=== PATIENT | female | born 1950 | race Caucasian/White ===

== ENCOUNTER 2017-01-28 17:39 | Emergency (ER) | payer MEDICAID ==
[~2017-01-28] VITALS: Ht 152.4 cm; Wt 73.0 kg
[~2017-01-28 17:39] MED LIST: CEPH500C PO; ERYT1OIN6 RIGHT EYE; HTN MED; IBUP400T22 PO; [UNRECOGNIZED DRUG - REMARK]
[2017-01-28 17:41] VITALS: Ht 152.4 cm; Wt 73.0 kg
[2017-01-28] MEDS ORDERED: AMO500 PO (18:13)
[2017-01-28] MEDS ORDERED: NPH10OT RIGHT EAR (18:13)
[2017-01-28] MEDS ORDERED: NAPR-260 PO (18:13)
--- NOTE | 2017-01-28 18:28 | ERD ---
ER Documentation Chief Complaint Date/Time DATE: 01/28/17 TIME: 18:25 Chief Complaint r ear pain x 4 days HPI This is a 66-year-old female presents to the ER with right ear pain for the last 4 days. Patient states that outside of her ear hurts including her ear lobe. Patient denies any fevers or chills. She denies any hearing loss or tinnitus. Patient denies any ear discharge. She is diabetic and has hypertension. Patient denies any sore throat, runny nose or cough. ROS 12 point review of systems was done, all negative except per HPI. Medications Home Meds Active Scripts Naproxen* (Naprosyn*) 500 Mg Tablet, 500 MG PO BID Y for PAIN AND/OR INFLAMMATION, #30 TAB Prov:MALIA LEVIN 01/28/17 Neomycin/Polymyxin/Hydrocort* (Cortisporin* Otic) 10 Ml Susp, 4 DROP RIGHT EAR QID for 7 Days, EA Prov:MALIA LEVIN 01/28/17 Amoxicillin* (Amoxicillin*) 500 Mg Cap, 500 MG PO BID for 10 Days, CAP Prov:MALIA LEVIN 01/28/17 Cephalexin* (Cephalexin*) 500 Mg Capsule, 500 MG PO Q6 for 5 Days, CAP Prov:MITCH IGLESIAS MD 12/24/15 Ibuprofen* (Motrin*) 400 Mg Tab, 400 MG PO Q6, #18 TAB Prov:MITCH IGLESIAS MD 12/24/15 Erythromycin (Erythromycin Opth) 3.5 Gm Oint..gm., 1 APPLIC RIGHT EYE BID, #1 TUB Prov:CATHY MO 11/07/15 Reported Medications [Unkn Dm Meds] No Conflict Check 02/04/10 [Unkn Htn Med] No Conflict Check 02/04/10 Allergies Allergies: Coded Allergies: No Known Drug Allergy (Verified Allergy, Mild, 02/04/10) PMhx/Soc History of Surgery: No Anesthesia Reaction: No Hx Neurological Disorder: No Hx Respiratory Disorders: No Hx Cardiac Disorders: Yes (HTN) Hx Psychiatric Problems: No Hx Miscellaneous Medical Probl: Yes (DM) Hx Alcohol Use: No Hx Substance Use: No Hx Tobacco Use: No Physical Exam Vitals Vital Signs Date Time Temp Pulse Resp B/P Pulse Ox O2 Delivery O2 Flow Rate FiO2 01/28/17 17:41 97.4 86 18 189/93 97 Physical Exam GENERAL: The patient is well developed and appropriate for usual state of health , in no apparent distress. HEENT: Atraumatic. Conjunctivae are pink. Pupils equal, round, and reactive to light. Extraocular muscles are grossly intact. Bilateral tympanic membranes are clear with no evidence of erythema, effusion or dulling of the light reflex. There is slight erythema of the right ear canal, there is pain with pinna manipulation and tragus tenderness. No discharge is seen. No mastoid tenderness. The oropharynx is clear with no erythema or exudates. CHEST: Clear to auscultation bilaterally. There are no rales, wheezes or rhonchi. HEART: Regular rate and rhythm. No murmurs, clicks, rubs or gallops. NEURO: Alert and oriented. SKIN:The skin is warm and dry. Procedures/MDM Differential diagnosis includes but is not limited to otitis externa, otitis media, cellulitis, trauma, mastoiditis. This is a 56-year-old female presents to the ER with right ear pain, patient doesn't have external otitis. Suspicion for mastoiditis is low, there is no mastoid tenderness to examination. She'll be sent home with amoxicillin and Corticosporin. She'll be sent home with naproxen for pain. Patient is to follow-up with her primary care doctor within 1 -2 days or return to ER sooner symptoms worsen. My medical decision making was shared with the patient she understands and agrees with plan. Departure Diagnosis: Primary Impression: Otitis externa Condition: Stable Patient Instructions: External Ear Infection (Adult) Additional Instructions: Llame al doctor [facility] y les fred MELISSA PARA DENTRO DE 1-2 GILLESPIE.Dgale a la secretaria que nosotros le instruimos hacer esta melissa.Avise o llame si blackwood condicin se empeora antes de la melissa. Regresa aqui si peor o no mejor. MALIA LEVIN Jan 28, 2017 18:28
== END 2017-01-28 18:16 | disposition home or self-care (01) ==
LOC: E/R 17:39
DX: H60.91 Unspecified otitis externa, right ear (principal); I10 Essential (primary) hypertension; E11.9 Type 2 diabetes mellitus without complications
CPT/HCPCS: 99283

== ENCOUNTER 2017-01-29 20:36 | Inpatient (IN) | payer MEDICAID ==
[~2017-01-29] VITALS: Ht 147.3 cm; Wt 33.6 kg
[~2017-01-29 20:36] MED LIST changes: +AMO500 PO; +NAPR-260 PO; +NPH10OT RIGHT EAR
[2017-01-29 20:44] VITALS: Ht 147.3 cm; Wt 33.6 kg
[2017-01-29 21:14] LABS: ADD SCAN DIFF NO
[2017-01-29 21:20] LABS: BASOPHIL # 0.1 10^3/ul (0.0-0.1); BASOPHILS % 0.7 % (0.0-2.0); EOSINOPHILS # 0.3 10^3/ul (0.0-0.5); EOSINOPHILS % 2.4 % (0.0-7.0); HEMATOCRIT 40.1 % (37.0-47.0); LYMPHOCYTES # 3.3 10^3/ul (0.8-2.9); LYMPHOCYTES % 28.3 % (15.0-51.0); MEAN CORPUSCULAR HEMOGLOBIN 30.3 pg (29.0-33.0); MEAN CORPUSCULAR HGB CONC 32.4 g/dl (32.0-37.0); MEAN CORPUSCULAR VOLUME 93.5 fl (82.0-101.0); MEAN PLATELET VOLUME 9.7 fl (7.4-10.4); MONOCYTE # 0.8 10^3/ul (0.3-0.9); MONOCYTES % 6.9 % (0.0-11.0); NEUTROPHIL # 7.1 10^3/ul (1.6-7.5); NEUTROPHILS % 61.1 % (39.0-77.0); PLATELET COUNT 297 10^3/UL (140-415); RED BLOOD COUNT 4.29 10^6/ul (4.20-5.40); RED CELL DISTRIBUTION WIDTH 13.1 % (11.5-14.5); WHITE BLOOD COUNT 11.7 10^3/ul (4.8-10.8)
[2017-01-29 21:40] LABS: INR 0.81; PROTIME 11.2 Sec (12.2-14.2); PT RATIO 0.9
[2017-01-29 21:41] LABS: PARTIAL THROMBOPLASTIN TIME 28.1 Sec (25.0-35.0)
[2017-01-29 21:44] LABS: ANION GAP 14 (8-16); BLOOD UREA NITROGEN 16 mg/dl (7-20); CALCIUM 9.3 mg/dl (8.4-10.2); CARBON DIOXIDE 30 mmol/L (21-31); CHLORIDE 105 mmol/L (97-110); CREATININE 0.96 mg/dl (0.44-1.00); GLUCOSE 170 mg/dl (70-220); POTASSIUM 3.5 mmol/L (3.5-5.1); SODIUM 145 mmol/L (135-144)
[2017-01-29 22:00] LABS: TROPONIN-I < 0.012 ng/ml (0.00-0.12)
--- NOTE | 2017-01-29 22:00 | ERA ---
ER Documentation Chief Complaint Date/Time DATE: 01/29/17 TIME: 21:55 Chief Complaint LEFT FACIAL DROOP WITH NUMBNESS TO LEFT FACE SINCE 3 PM. HTN HPI 66-year-old Argentine speaking female. Rn Picu use. The patient presents with left facial droop and numbness. The patient states the onset is around 3 PM or greater than 6 hours prior to arrival. The patient states that she was here yesterday and diagnosed with an ear infection. She denies any fevers or chills, no headache or neck pain. She denies any slurred speech or difficulty moving her upper extremities, no ataxia. She denies any change in taste of her right lateral tongue. ROS All systems reviewed and are negative except as per history of present illness. Medications Home Meds Active Scripts Naproxen* (Naprosyn*) 500 Mg Tablet, 500 MG PO BID Y for PAIN AND/OR INFLAMMATION, #30 TAB Prov:MALIA LEVIN 01/28/17 Neomycin/Polymyxin/Hydrocort* (Cortisporin* Otic) 10 Ml Susp, 4 DROP RIGHT EAR QID for 7 Days, EA Prov:MALIA LEVIN 01/28/17 Amoxicillin* (Amoxicillin*) 500 Mg Cap, 500 MG PO BID for 10 Days, CAP Prov:MALIA LEVIN 01/28/17 Cephalexin* (Cephalexin*) 500 Mg Capsule, 500 MG PO Q6 for 5 Days, CAP Prov:MITCH IGLESIAS MD 12/24/15 Ibuprofen* (Motrin*) 400 Mg Tab, 400 MG PO Q6, #18 TAB Prov:MITCH IGLESIAS MD 12/24/15 Erythromycin (Erythromycin Opth) 3.5 Gm Oint..gm., 1 APPLIC RIGHT EYE BID, #1 TUB Prov:CATHY MO 11/07/15 Reported Medications [Unkn Dm Meds] No Conflict Check 02/04/10 [Unkn Htn Med] No Conflict Check 02/04/10 Allergies Allergies: Coded Allergies: No Known Drug Allergy (Verified Allergy, Mild, 02/04/10) PMhx/Soc History of Surgery: No Anesthesia Reaction: No Hx Neurological Disorder: No Hx Respiratory Disorders: No Hx Cardiac Disorders: Yes (HTN) Hx Psychiatric Problems: No Hx Miscellaneous Medical Probl: Yes (DM) Hx Alcohol Use: No Hx Substance Use: No Hx Tobacco Use: No Smoking Status: Never smoker FmHx Family History: No diabetes Physical Exam Vitals Vital Signs Date Time Temp Pulse Resp B/P Pulse Ox O2 Delivery O2 Flow Rate FiO2 01/29/17 21:00 82 20 199/102 98 Room Air 01/29/17 20:44 96.2 84 18 211/100 96 Physical Exam General: Well developed, well nourished, no acute distress Head: Normocephalic, atraumatic. Eyes: Pupils equally reactive, EOM intact ENT: Moist mucous membranes Neck: Supple, no lymphadenopathy Respiratory: Lungs clear bilaterally, no distress Cardiovascular: RRR, no murmurs, rubs, or gallops Abdominal: Soft, non-tender, non-distended, no peritoneal signs : Deferred MSK: No edema, no unilateral swelling, 5/5 strength Neurologic: Alert and oriented, moving all extremities, normal speech, no focal weakness, no cerebellar signs, the patient has evidence of a right-sided facial droop that spares the forehead. She has no pronator drift she has no ataxia. Skin: No rash Psych: Normal mood Result Diagram: 01/29/17 2100 01/29/17 2100 Results 24 hrs Laboratory Tests Test 01/29/17 21:00 01/29/17 21:06 White Blood Count 11.710^3/ul Red Blood Count 4.2910^6/ul Hemoglobin 13.0g/dl Hematocrit 40.1% Mean Corpuscular Volume 93.5fl Mean Corpuscular Hemoglobin 30.3pg Mean Corpuscular Hemoglobin Concent 32.4g/dl Red Cell Distribution Width 13.1% Platelet Count 52618^3/UL Mean Platelet Volume 9.7fl Neutrophils % 61.1% Lymphocytes % 28.3% Monocytes % 6.9% Eosinophils % 2.4% Basophils % 0.7% Nucleated Red Blood Cells % 0.0/100WBC Neutrophils # 7.110^3/ul Lymphocytes # 3.310^3/ul Monocytes # 0.810^3/ul Eosinophils # 0.310^3/ul Basophils # 0.110^3/ul Nucleated Red Blood Cells # 0.010^3/ul Prothrombin Time 11.2Sec Prothrombin Time Ratio 0.9 INR International Normalized Ratio 0.81 Activated Partial Thromboplast Time 28.1Sec Sodium Level 145mmol/L Potassium Level 3.5mmol/L Chloride Level 105mmol/L Carbon Dioxide Level 30mmol/L Anion Gap 14 Blood Urea Nitrogen 16mg/dl Creatinine 0.96mg/dl Glucose Level 170mg/dl Hemoglobin A1c 7.7% Calcium Level 9.3mg/dl Troponin I < 0.012ng/ml Bedside Glucose 155mg/dL Current Medications Medications (Trade) Dose Ordered Sig/Shawn Route PRN Reason Start Time Stop Time Status Last Admin Dose Admin IV Flush 10 ml 10 ml STK-MED ONCE .ROUTE 01/29/17 22:22 01/29/17 22:23 DC Sodium Chloride (NS) 100 ml @ ud STK-MED ONCE .ROUTE 01/29/17 22:22 01/29/17 22:23 DC Iodixanol (Visipaque Locm) 100 ml STK-MED ONCE .ROUTE 01/29/17 22:22 01/29/17 22:23 DC Ondansetron HCl (Zofran Inj) 4 mg ER BRIDGE PRN IV NAUSEA AND/OR VOMITING 01/29/17 23:30 01/30/17 23:29 Acetaminophen (Tylenol Tab) 650 mg ER BRIDGE PRN PO MILD PAIN/FEVER 01/29/17 23:30 01/30/17 23:29 Aspirin (Aspirin) 162 mg ONCE ONCE PO 01/29/17 23:30 01/29/17 23:31 Procedures/MDM EKG, MONITORS, & DIAGNOSTIC IMAGING: EKG: I reviewed and interpreted a 12-lead EKG. Rhythm: Normal sinus rhythm Ectopy: None Intervals: No abnormalities ST segments: No elevations or depressions T waves: No contiguous inversions Chest x-ray: I reviewed and interpreted a 1 view of the chest Mediastinum: No enlargement Cardiac silhouette: No cardiomegaly Airspace: Clear lung faye bilaterally without evidence of pneumothorax Bones: No evidence of fracture CT brain: No acute process per radiology verbal report CTA head and neck: No acute process per radiology verbal report LAB INTERPRETATION: No acute process MEDICAL DECISION MAKING: The patient presents to the emergency room complaining of right-sided facial droop with sparing of the forehead. Paresthesias are also noted. The patient does have risk factors for stroke including age, hypertension. Her clinical exam could represent Duncan's palsy however she has sparing of the forehead. The patient's ear exam shows no evidence of vesicular lesions, small purulent material is noted consistent with otitis externa. While I could consider Duncan's palsy this patient the patient still is able to move her forehead for this reason this is concerning for possible central process. The patient has greater than 6 hours of symptoms and is not a TPA candidate. The patient could possibly be a vascular candidate therefore CTA of the head and neck have been ordered. 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 I feel the patient would benefit from inpatient hospitalization for MRI imaging and further evaluation at that time. She does have significant hypertension pointing to possible central process rather than peripheral neuropathy. ER COURSE: Aspirin provided. CT imaging is negative. MRI necessary to rule out stroke and central process. The patient was given 10 mg of labetalol given significant hypertension. While I would allow permissive hypertension the patient's blood pressure was in the 200s therefore I believe a small dose of beta-alon would be most appropriate. Continue to allow hypertension to certain degree given concern for possible central process. I kept the patient and/or family informed of laboratory and diagnostic imaging results throughout the emergency room course. DISPOSITION PLAN: Telemetry admission to rule out stroke CONSULTATION: Accepting care team and consultations: I discussed the current laboratory data, diagnostic imaging and emergency care provided. Admitting team: Dr. Quintana Admitting team indication: Insurance directed Departure Diagnosis: Primary Impression: Facial droop Additional Impression: Hypertensive urgency Condition: Stable DIANA CEVALLOS MD Jan 29, 2017 22:00
[2017-01-29] MEDS ORDERED: IODIXANOL LOCM 100 ML BTL ONE (22:22)
[2017-01-29] MEDS ORDERED: SOD CHLORIDE 0.9% 100 ML ONE (22:22)
--- NOTE | 2017-01-29 23:02 | RADRPT ---
PROCEDURE: CT brain without contrast. CLINICAL INDICATION: Stroke. TECHNIQUE: CT scan of the brain was performed on a multi-detector high-resolution CT scanner. Co ntiguous axial images were obtained from the skull base to the vertex without intravenous contrast. Coronal and sagittal reformatted images were also obtained. Images were reviewed on the PACS works tation. One or more of the following dose reduction techniques were used: - Automated exposure control. - Adjustment of the mA and/or kV according to patient size. - Use of iterative reconstruction technique. Exam CTD/vol = 42.56 mGy. Total exam DLP = 720.23 mGy-cm. COMPARISON: 12/24/2015. FINDINGS: The ventricles and cortical sulci are within normal limits for patient's age. There are no areas of abnormal attenuation within the brain parenchyma. There is no mass effect or midline shift. There is no intracranial hemorrhage or abnormal extra-axial collection. There are mild atherosclerotic calci fications within bilateral distal internal carotid arteries. The calvarium is intact. There is no evidence of fracture. Visualized paranasal sinuses and mastoid air cells are clear. IMPRESSION: No acute intracranial abnormality identified. Mild cerebral atherosclerosis. .Dyllan Lyons MD, Date Time Electronically viewed and signed by .Dyllan Lyons MD, MD on 01/29/2017 23:01 .T/
--- NOTE | 2017-01-29 23:02 | RADRPT ---
PROCEDURE: CT angiogram of the head and neck with contrast. CLINICAL INDICATION: Stroke. TECHNIQUE: CT angiogram of the head and neck was performed on a multi-detector high-resolution CT scanner. Contiguous axial images were obtained after the dynamic injection of 100 cc Omnipaque 350 intravenous contrast. Coronal and sagittal as well as maximal intensity projection reformations we re obtained. 3-D post processing was also performed. Images were reviewed on a PACS workstation. One or more of the following dose reduction techniques were used: - Automated exposure control. - Adjustment of the mA and/or kV according to patient size. - Use of iterative reconstruction technique. Exam CTD/vol = 13.60 mGy. Total exam DLP = 482.76 mGy-cm. COMPARISON: None. FINDINGS: Neck: The visualized aortic arch and proximal great vessels demonstrate mild scattered atherosclerot ic calcifications. Bilateral common carotid arteries are normal course and caliber. Bilateral romero tid bulbs and bifurcations demonstrate mild calcific atherosclerotic plaque. There is a medial cour se of the proximal to mid left internal carotid artery posterior to the pharynx. Bilateral internal and external carotid arteries are of normal caliber. The left vertebral artery is dominant. Bilat eral vertebral arteries are otherwise patent. There is no significant stenosis or occlusion. There is no evidence of aneurysm or dissection. There are heterogeneous left thyroid nodules with the lar gest measuring 1.5 x 1.1 cm. Brain: Bilateral distal internal carotid arteries are normal course and caliber with mild scattered atherosclerotic calcifications. Bilateral anterior and middle cerebral arteries are within normal limits. Bilateral distal vertebral arteries are of normal course and caliber. The basilar artery i s intact. Bilateral posterior cerebral arteries are within normal limits. There is no significant stenosis or occlusion. There is no evidence of aneurysm or vascular malformation. The venous struc tures are unremarkable. IMPRESSION: Mild vascular calcifications reflective of atherosclerosis. Medial course of the left proximal to mid internal carotid artery posterior to the pharynx. Dominant left vertebral artery. Heterogeneous left thyroid nodules measuring up to 1.[address] angiogram of the head and neck. A call report was made to Dr. Benitez at 10:55 p.m. .Dyllan Lyons MD, MD Date Time Electronically viewed and signed by .Dyllan Lyons MD, MD on 01/29/2017 23:02 .T/
--- NOTE | 2017-01-29 23:09 | RADRPT ---
PROCEDURE: XR Chest. CLINICAL INDICATION: Chest pain. Possible stroke TECHNIQUE: Portable AP semi-erect view of the chest was obtained. COMPARISON: None. FINDINGS: The cardiomediastinal silhouette is enlarged. The lungs are clear. There is no evidence for pleura l effusion, pneumothorax or pulmonary vascular congestion. The osseous structures are intact with n o evidence for acute abnormality. RPTAT:HJJR IMPRESSION: Cardiac silhouette enlargement without evidence for acute intrathoracic pathology. Physician Hong Date Time Electronically viewed and signed by Parveen Dee Physician on 01/29/2017 23:09 JR/
[2017-01-29] MEDS ORDERED: ACETAMINOPHEN 325 MG TAB PO PRN (23:30)
[2017-01-29] MEDS ORDERED: LABETALOL HCL 20MG INJ IV ONE (23:30)
[2017-01-29] MEDS ORDERED: ONDANSETRON 4 MG INJ IV PRN (23:30)
[2017-01-29] MEDS ORDERED: ASPIRIN 81 MG TAB PO ONE (23:30)
[2017-01-30] VITALS (12 sets, daily range): BP systolic 159–182; BP diastolic 72–99; PULSE 56–85; RESP 16–18; TEMP 98.8
[2017-01-30] MEDS ORDERED: ACETAMINOPHEN 325 MG TAB PO PRN (01:30)
[2017-01-30] MEDS ORDERED: morphine 2 MG INJ IV PRN (01:30)
[2017-01-30] MEDS ORDERED: NAPROXEN 500 MG TAB PO PRN (01:30)
[2017-01-30] MEDS ORDERED: ONDANSETRON 4 MG INJ IV PRN (01:30)
[2017-01-30] MEDS: IBUPROFEN 400 MG TAB PO SCH ×4 (05:56→23:28)
[2017-01-30] MEDS: CEPHALEXIN 500 MG CAP PO SCH ×4 (05:56→23:27)
[2017-01-30 06:57] LABS: ADD SCAN DIFF NO
[2017-01-30 07:04] LABS: BASOPHIL # 0.1 10^3/ul (0.0-0.1); BASOPHILS % 0.6 % (0.0-2.0); EOSINOPHILS # 0.3 10^3/ul (0.0-0.5); EOSINOPHILS % 2.3 % (0.0-7.0); HEMATOCRIT 39.3 % (37.0-47.0); HEMOGLOBIN 12.6 g/dl (12.0-16.0); LYMPHOCYTES # 3.1 10^3/ul (0.8-2.9); LYMPHOCYTES % 28.5 % (15.0-51.0); MEAN CORPUSCULAR HEMOGLOBIN 29.9 pg (29.0-33.0); MEAN CORPUSCULAR HGB CONC 32.1 g/dl (32.0-37.0); MEAN CORPUSCULAR VOLUME 93.1 fl (82.0-101.0); MEAN PLATELET VOLUME 9.7 fl (7.4-10.4); MONOCYTE # 0.7 10^3/ul (0.3-0.9); MONOCYTES % 6.5 % (0.0-11.0); NEUTROPHIL # 6.7 10^3/ul (1.6-7.5); NEUTROPHILS % 61.5 % (39.0-77.0); PLATELET COUNT 277 10^3/UL (140-415); RED BLOOD COUNT 4.22 10^6/ul (4.20-5.40); RED CELL DISTRIBUTION WIDTH 13.1 % (11.5-14.5); WHITE BLOOD COUNT 10.9 10^3/ul (4.8-10.8)
[2017-01-30 07:30] LABS: CALCIUM 8.9 mg/dl (8.4-10.2); CHOL/HDL RATIO 4.3 RATIO; CREATININE 0.69 mg/dl (0.44-1.00); POTASSIUM 3.2 mmol/L (3.5-5.1)
[2017-01-30 07:51] LABS: THYROID STIMULATING HORMONE 3.81 MIU/L (0.465-4.680)
--- NOTE | 2017-01-30 07:58 | HP ---
DATE OF ADMISSION: 01/29/2017 TIME SEEN: 23:00 CHIEF COMPLAINT: Left facial droop. HISTORY OF PRESENT ILLNESS: The patient is a 66-year-old female with a history of hypertension and diabetes who presented to the emergency department with a chief complaint of left facial droop. She has been having right ear pain, for which she was seen here in the ER yesterday and was diagnosed w ith otitis externa. She was discharged with amoxicillin, corticosporin, cephalexin and pain medicat ion yesterday. This afternoon, while she was drinking water while to take her medication she notice d that the water was just drooling out of her mouth. When she looked at her face in the mirror, she noticed left facial droop. She also complained some difficulty completely closing her eyes and faisal e heaviness in her left eye. She denied any focal weakness, numbness, seizure-like activity, fever, chills, chest pain, nausea, vomiting. When she presented to the ER, blood pressure was 211/100, heart rate 84, respiratory rate 18, temper ature ____, oxygen saturation 96% on room air. Laboratory value shows a WBC of 11.7, sodium 145, ot herwise CBC and BMP are within normal limits. First troponin is negative. Brain CT shows mild cere bral atherosclerosis, otherwise no acute intracranial abnormality. CT angiogram of the head and nec k shows mild vascular calcification ____ left thyroid nodule measuring up to 1.5 cm, otherwise unrem arkable. Chest x-ray shows cardiac silhouette enlargement without evidence for acute intrathoracic pathology. The patient was given labetalol, aspirin and admitted to telemetry unit. REVIEW OF SYSTEMS. ____ negative except as mentioned in the HPI. PAST MEDICAL HISTORY: As per HPI. PAST SURGICAL HISTORY: Tonsillectomy in 2015. SOCIAL HISTORY: Denied a history of tobacco, alcohol or illicit drug use. ALLERGIES: NO KNOWN DRUG ALLERGIES. HOME MEDICATIONS: 1. Amoxicillin. 2. Cephalexin. 3. Ibuprofen. 4. Naproxen. 5. Erythromycin eyedrops. 6. Corticosporin otic. 7. Unknown diabetic and unknown antihypertensive medication. PHYSICAL EXAMINATION: VITAL SIGNS: Blood pressure 195/95, heart rate 58, respiratory rate 18, temperature 98, oxygen satu ration 98% on room air. GENERAL: The patient seems slightly anxious, but in no acute distress. HEENT: There is left-sided facial droop. Pupils are reactive to light. No scleral icterus. CARDIOVASCULAR: Regular rate and rhythm. No extra sounds. LUNGS: Clear. ABDOMEN: Soft, nontender, nondistended. Positive bowel sounds. EXTREMITIES: No edema. NEUROLOGIC: No focal deficit. She has 5/5 strength in both upper and lower extremities and sensati on intact. As mentioned above, there is left-sided facial droop. LABORATORY DATA: CBC and BMP are within normal limits. First troponin negative. IMAGING: Brain CT, CT angiogram of the head and neck as well as chest x-ray with results as mention ed in the HPI. IMPRESSION 1. 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 2. Recently diagnosed otitis externa, diagnosed yesterday. 3. Hypertensive urgency. 4. History of diabetes. PLAN: Continue telemetry monitoring. The patient's symptom is likely secondary to Duncan's palsy. W e will start her on steroids and acyclovir. She will be continued with her recently started antibio tic for otitis externa. Will obtain an MRI of the brain for better evaluation. We will place a milton rology consult. We will check A1c and fasting lipids in the morning. For DVT prophylaxis she will be placed on Lovenox. Will have a formal speech/swallow evaluation as well as physical therapy eval uation. Will check A1c and she will be placed on insulin while inhouse for her diabetes. I will al low permissive hypertensive for about 24 hours, given the possibility of a CVA. We will not treat h er BP unless it is greater than 220/124 ____ 24 hours. Blood glucose goal should be less than 180 a nd will give Tylenol on the first sign of fever. Dictated By: MONE COELLO/MESSI Conf#: [id number] DID#: [id number]
[2017-01-30] MEDS: AMOXICILLIN 500 MG CAP PO SCH ×2 (08:49→20:09)
[2017-01-30] MEDS: ASPIRIN 81 MG TAB PO SCH (08:49)
[2017-01-30] MEDS: ERYTHROMYCIN 1 GM OPH OINT RIGHT EYE SCH ×2 (08:49→20:12)
[2017-01-30] MEDS: NEOMYC/POLYMYX/HC 10 ML OTIC SUSP RIGHT EAR SCH ×4 (08:49→20:11)
[2017-01-30] MEDS: ENOXAPARIN 40 MG/0.4 ML SYG SC SCH (08:50)
[2017-01-30] MEDS: DEXAMETHASONE 4 MG/ML 1 ML INJ IV SCH ×4 (08:52→23:27)
[2017-01-30] MEDS: ACYCLOVIR 800 MG TAB PO SCH ×3 (09:17→20:09)
[2017-01-30 10:24] LABS: ADD UMIC NO; URINE BILIRUBIN (Dip) NEGATIVE (NEGATIVE); URINE BLOOD (Dip) NEGATIVE (NEGATIVE); URINE COLOR LT. YELLOW (YELLOW); URINE GLUCOSE (Dip) NEGATIVE (NEGATIVE); URINE KETONES (Dip) NEGATIVE (NEGATIVE); URINE LEUKOCYTE ESTERASE (Dip) NEGATIVE (NEGATIVE); URINE NITRITE (Dip) NEGATIVE (NEGATIVE); URINE TOTAL PROTEIN (Dip) NEGATIVE (NEGATIVE); URINE UROBILINOGEN (Dip) 0.2 E.U./dL (0.1-1.0)
[2017-01-30] MEDS ORDERED: POTASSIUM CHLORIDE (SR) 20 MEQ TAB PO STA (10:36)
[2017-01-30 10:49] LABS: BARBITURATES Negative (NEGATIVE); BENZODIAZEPINES Negative (NEGATIVE); CANNABINOIDS Negative (NEGATIVE); COCAINE Negative (NEGATIVE); OPIATES Negative (NEGATIVE)
[2017-01-30] MEDS: hydrALAzine 20 MG INJ IV PRN ×2 (16:35→23:31)
--- NOTE | 2017-01-30 17:19 | PN ---
Date/Time of Note Date/Time of Note DATE: 01/30/17 TIME: 17:13 Assessment/Plan VTE Prophylaxis VTE Prophylaxis Intervention: LMWH Lines/Catheters IV [facility] Saline Lock Assessment/Plan Chief Complaint/Hosp Course 1. 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 Recently diagnosed otitis externa Continue antibiotics 3. Hypertensive urgency BP still elevated will start lisinopril 10 mg daily and titrate up as needed Hydralazine as needed 4. History of diabetes A1c at 7.6 Prophylaxis: Lovenox Problems: Subjective 24 Hr Interval Summary Neurologic: focal-weakness Exam/Review of Systems Vital Signs Vitals Vital Signs Date Time Temp Pulse Resp B/P Pulse Ox O2 Delivery O2 Flow Rate FiO2 01/30/17 16:15 69 01/30/17 15:22 98.1 18 178/99 96 01/30/17 00:35 Room Air Intake and Output 01/29/17 01/29/17 01/30/17 15:00 23:00 07:00 Intake Total 150 ml Balance 150 ml Exam Constitutional: alert Respiratory: clear to auscultation Cardiovascular: regular rate and rhythm Gastrointestinal: soft, No distended Musculoskeletal: nl extremities to inspection Results Result Diagram: 01/30/1725 01/30/17 0625 Results 24 hrs Laboratory Tests Test 01/29/17 21:00 01/29/17 21:06 01/30/17 06:10 01/30/17 06:25 White Blood Count 11.7 H 10.9 H Red Blood Count 4.29 4.22 Hemoglobin 13.0 12.6 Hematocrit 40.1 39.3 Mean Corpuscular Volume 93.5 93.1 Mean Corpuscular Hemoglobin 30.3 29.9 Mean Corpuscular Hemoglobin Concent 32.4 32.1 Red Cell Distribution Width 13.1 13.1 Platelet Count 297 277 Mean Platelet Volume 9.7 9.7 Neutrophils % 61.1 61.5 Lymphocytes % 28.3 28.5 Monocytes % 6.9 6.5 Eosinophils % 2.4 2.3 Basophils % 0.7 0.6 Nucleated Red Blood Cells % 0.0 0.0 Neutrophils # 7.1 6.7 Lymphocytes # 3.3 H 3.1 H Monocytes # 0.8 0.7 Eosinophils # 0.3 0.3 Basophils # 0.1 0.1 Nucleated Red Blood Cells # 0.0 0.0 Prothrombin Time 11.2 L Prothrombin Time Ratio 0.9 INR International Normalized Ratio 0.81 Activated Partial Thromboplast Time 28.1 Sodium Level 145 H 142 Potassium Level 3.5 3.2 L Chloride Level 105 105 Carbon Dioxide Level 30 26 Anion Gap 14 14 Blood Urea Nitrogen 16 11 Creatinine 0.96 0.69 Glucose Level 170 149 Hemoglobin A1c 7.7 H 7.6 H Calcium Level 9.3 8.9 Troponin I < 0.012 Bedside Glucose 155 Urine Color LT. YELLOW Urine Clarity CLEAR Urine pH 7.0 Urine Specific [place] 1.010 Urine Ketones NEGATIVE Urine Nitrite NEGATIVE Urine Bilirubin NEGATIVE Urine Urobilinogen 0.2 E.U./dL Urine Leukocyte Esterase NEGATIVE Urine Hemoglobin NEGATIVE Urine Glucose NEGATIVE Urine Total Protein NEGATIVE Urine Opiates Screen Negative Urine Barbiturates Negative Urine Amphetamines Screen Negative Urine Benzodiazepines Screen Negative Urine Cocaine Screen Negative Urine Cannabinoids Negative Triglycerides Level 249 H Cholesterol Level 213 H LDL Cholesterol, Calculated 114 HDL Cholesterol 49 Cholesterol/HDL Ratio 4.3 Thyroid Stimulating Hormone (TSH) 3.810 Medications Medications Current Medications Amoxicillin (Amoxicillin) 500 mg BID PO Last administered on 01/30/17 08:49; Admin Dose 500 MG; Start 01/30/17 at 09:00 Cephalexin (Keflex) 500 mg Q6 PO Last administered on 01/30/17 12:53; Admin Dose 500 MG; Start 01/30/17 at 06:00 Erythromycin (Erythromycin Oph Oint) 1 applic BID RIGHT EYE Last administered on 01/30/17 08:49; Admin Dose 1 APPLIC; Start 01/30/17 at 09:00 Ibuprofen (Motrin) 400 mg Q6 PO Last administered on 01/30/17 12:55; Admin Dose 400 MG; Start 01/30/17 at 06:00 Naproxen (Naprosyn) 500 mg BID PRN PO PAIN AND/OR INFLAMMATION; Start 01/30/17 at 01:30 Neomycin/ Polymyxin/ Hydrocortisone (Cortisporin Otic Susp) 4 drop QID RIGHT EAR Last administered on 01/30/17 12:54; Admin Dose 4 DROP; Start 01/30/17 at 09 :00 Aspirin (Aspirin) 81 mg DAILY PO Last administered on 01/30/17 08:49; Admin Dose 81 MG; Start 01/30/17 at 09:00 Atorvastatin Calcium (Lipitor) 20 mg HS PO ; Start 01/30/17 at 21:00 Morphine Sulfate (morphine) 2 mg Q4H PRN IV PAIN LEVEL 4-7; Start 01/30/17 at 01 :30 Acetaminophen (Tylenol Tab) 650 mg Q6H PRN PO PAIN AND OR ELEVATED TEMP; Start 01/30/17 at 01:30 Enoxaparin Sodium (Lovenox) 40 mg DAILY SC Last administered on 01/30/17 08:50 ; Admin Dose 40 MG; Start 01/30/17 at 09:00 Ondansetron HCl (Zofran Inj) 4 mg Q6H PRN IV NAUSEA AND/OR VOMITING; Start 01/30 at 01:30 Hydralazine HCl (Apresoline) 10 mg Q4H PRN IV SBP > 170 Last administered on 16:35; Admin Dose 10 MG; Start 01/30/17 at 01:30 Dexamethasone (Decadron) 4 mg Q6 IV Last administered on 01/30/17 12:53; Admin Dose 4 MG; Start 01/30/17 at 09:00 Acyclovir (Zovirax) 800 mg TID PO Last administered on 01/30/17 12:53; Admin Dose 800 MG; Start 01/30/17 at 09:00 ALPA HUBER Jan 30, 2017 17:19
[2017-01-30] MEDS: LISINOPRIL 10 MG TAB PO SCH (18:49)
--- NOTE | 2017-01-30 19:20 | RADRPT ---
PROCEDURE: MRI Brain without contrast. CLINICAL INDICATION: Suspected stroke. TECHNIQUE: An MRI of the brain was performed without contrast utilizing the following sequences: Sagittal T1 weighted, sagittal FLAIR, axial T1, axial FLAIR, axial T2 weighted, axial diffusion weig hted (EPI technique [id number]), axial ADC mapping. The images were reviewed on a high-resolution PACS workstation. COMPARISON: CT 86 12/15/2016, CT head 01/29/2017, 12/24/2015, 11/07/2015 FINDINGS: Diffusion weighted sequences demonstrate no evidence of acute lacunar or lobar infarction. There is no intracranial hemorrhage, extra-axial fluid collection, mass lesion, midline shift or hydrocephal ous. There is mild prominence of the cerebral sulci, lateral and third ventricles. There are mild punctate and patchy periventricular and subcortical white matter lesions. The brainstem and cerebel lum are normal in appearance. The basal cisterns are patent. Normal flow voids are visible the pro ximal intracranial arteries and dural sinuses, indicating patency. The midline structures are intac t. There is a subtle area of artifact on the diffusion weighted sequences anterior to the j carlos (axia l series image 9). The paranasal sinuses, mastoid air cells and middle ear cavities are normally aerated. The orbits, calvarium and extracranial soft tissues are normal in appearance. IMPRESSION: 1. No acute intracranial abnormality. No intracranial hemorrhage, mass lesion, infarction or hydro cephalous. 2. Mild peripheral and central cerebral volume loss. 3. Mild periventricular and subcortical white matter lesions, likely related to early microangiopat hic changes. RPTAT: HGAS .Tahir Todd MD, Date Time Electronically viewed and signed by .Tahir Todd MD, on 01/30/2017 19:20 .S/
[2017-01-30] MEDS ORDERED: DEXTROSE 50% 50 ML SYRINGE IV PRN ×2 (19:30)
[2017-01-30] MEDS ORDERED: GLUCOSE GEL 15 GRAM TUBE PO PRN ×2 (19:30)
[2017-01-30] MEDS ORDERED: GLUCOSE GEL 15 GRAM TUBE BUCCAL PRN (19:30)
[2017-01-30] MEDS ORDERED: GLUCAGON 1 MG INJ IM PRN (19:30)
[2017-01-30] MEDS: ATORVASTATIN 20 MG TAB PO SCH (20:09)
[2017-01-30] MEDS: INSULIN ASPART [NOVOLOG] 3 ML PEN SC SCH (21:43)
[2017-01-30] MEDS ORDERED: INSULIN ASPART [NOVOLOG] 3 ML PEN SC ONE (22:30)
[2017-01-30] MEDS: INSULIN GLARGINE [LANtus] 3 ML PEN SC SCH (23:23)
[2017-01-31] VITALS (15 sets, daily range): BP systolic 138–197; BP diastolic 60–83; PULSE 65–85; RESP 16–19
[2017-01-31] MEDS: ACCU-CHEK XX SCH (02:00)
[2017-01-31] MEDS ORDERED: ACCU-CHEK XX SCH (02:00)
[2017-01-31] MEDS: IBUPROFEN 400 MG TAB PO SCH ×4 (05:30→23:47)
[2017-01-31] MEDS: CEPHALEXIN 500 MG CAP PO SCH ×4 (05:30→23:47)
[2017-01-31] MEDS: DEXAMETHASONE 4 MG/ML 1 ML INJ IV SCH ×2 (05:30→12:20)
[2017-01-31 07:32] LABS: ADD SCAN DIFF NO
[2017-01-31 07:41] LABS: BASOPHILS % 0.1 % (0.0-2.0); HEMATOCRIT 39.2 % (37.0-47.0); LYMPHOCYTES # 1.6 10^3/ul (0.8-2.9); LYMPHOCYTES % 8.2 % (15.0-51.0); MEAN CORPUSCULAR HEMOGLOBIN 30.6 pg (29.0-33.0); MEAN CORPUSCULAR HGB CONC 33.2 g/dl (32.0-37.0); MEAN CORPUSCULAR VOLUME 92.2 fl (82.0-101.0); MEAN PLATELET VOLUME 9.9 fl (7.4-10.4); MONOCYTE # 0.4 10^3/ul (0.3-0.9); MONOCYTES % 1.7 % (0.0-11.0); NEUTROPHIL # 17.7 10^3/ul (1.6-7.5); NEUTROPHILS % 88.7 % (39.0-77.0); PLATELET COUNT 300 10^3/UL (140-415); RED BLOOD COUNT 4.25 10^6/ul (4.20-5.40)
[2017-01-31] MEDS: INSULIN ASPART [NOVOLOG] 3 ML PEN SC SCH ×5 (08:03→21:20)
[2017-01-31 08:22] LABS: CALCIUM 9.6 mg/dl (8.4-10.2); CREATININE 0.9 mg/dl (0.44-1.00); MAGNESIUM 2.2 mg/dl (1.7-2.5); PHOSPHORUS 4.1 mg/dl (2.5-4.9); POTASSIUM 3.9 mmol/L (3.5-5.1)
[2017-01-31] MEDS: AMOXICILLIN 500 MG CAP PO SCH ×2 (09:06→21:14)
[2017-01-31] MEDS: ASPIRIN 81 MG TAB PO SCH (09:06)
[2017-01-31] MEDS: ACYCLOVIR 800 MG TAB PO SCH ×2 (09:06→12:17)
[2017-01-31] MEDS: ERYTHROMYCIN 1 GM OPH OINT RIGHT EYE SCH ×2 (09:07→21:16)
[2017-01-31] MEDS: LISINOPRIL 10 MG TAB PO SCH (09:08)
[2017-01-31] MEDS: NEOMYC/POLYMYX/HC 10 ML OTIC SUSP RIGHT EAR SCH ×4 (09:08→21:17)
[2017-01-31] MEDS: ENOXAPARIN 40 MG/0.4 ML SYG SC SCH (09:19)
[2017-01-31] MEDS: hydrALAzine 20 MG INJ IV PRN ×2 (12:27→23:40)
[2017-01-31] MEDS ORDERED: LISINOPRIL 10 MG TAB PO ONE (15:30)
--- NOTE | 2017-01-31 15:30 | PN ---
Date/Time of Note Date/Time of Note DATE: 01/31/17 TIME: 15:20 Assessment/Plan VTE Prophylaxis VTE Prophylaxis Intervention: LMWH Lines/Catheters IV Catheter Type (from [facility]): Saline Lock Assessment/Plan Chief Complaint/Hosp Course 1. 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 Recently diagnosed otitis externa Continue antibiotics 3. Hypertensive urgency-BP still elevated Increase lisinopril to 20 mg daily, patient's home BP meds are known Hydralazine as needed 4. History of diabetes with acute hyperglycemia secondary to steroid A1c at 7.6, home meds unknown at this time Continue Lantus and start NovoLog with meals sugars are acutely elevated secondary steroids Prophylaxis: Lovenox Discharge planning: Anticipate DC tomorrow if BP controlled Problems: Subjective 24 Hr Interval Summary Constitutional: no complaints Exam/Review of Systems Vital Signs Vitals Vital Signs Date Time Temp Pulse Resp B/P Pulse Ox O2 Delivery O2 Flow Rate FiO2 01/31/17 14:30 81 164/80 01/31/17 11:49 97.5 18 95 01/31/17 01:00 Room Air Intake and Output 01/30/17 01/30/17 01/31/17 15:00 23:00 07:00 Intake Total 950 ml Output Total 1200 ml Balance -250 ml Exam Constitutional: alert Respiratory: clear to auscultation Cardiovascular: regular rate and rhythm Gastrointestinal: soft, No distended Musculoskeletal: nl extremities to inspection Neurological: focal weakness Results Result Diagram: 01/31/17 0710 01/31/17 0710 Results 24 hrs Laboratory Tests Test 01/30/17 19:48 01/31/17 03:30 01/31/17 07:10 01/31/17 07:53 Bedside Glucose 319 H 253 H 239 H White Blood Count 20.0 #H Red Blood Count 4.25 Hemoglobin 13.0 Hematocrit 39.2 Mean Corpuscular Volume 92.2 Mean Corpuscular Hemoglobin 30.6 Mean Corpuscular Hemoglobin Concent 33.2 Red Cell Distribution Width 13.0 Platelet Count 300 Mean Platelet Volume 9.9 Neutrophils % 88.7 H Lymphocytes % 8.2 L Monocytes % 1.7 Eosinophils % 0.0 Basophils % 0.1 Nucleated Red Blood Cells % 0.0 Neutrophils # 17.7 H Lymphocytes # 1.6 Monocytes # 0.4 Eosinophils # 0.0 Basophils # 0.0 Nucleated Red Blood Cells # 0.0 Sodium Level 140 Potassium Level 3.9 Chloride Level 107 Carbon Dioxide Level 23 Anion Gap 14 Blood Urea Nitrogen 26 #H Creatinine 0.90 Glucose Level 229 H Calcium Level 9.6 Phosphorus Level 4.1 Magnesium Level 2.2 Test 01/31/17 11:52 Bedside Glucose 240 H Medications Medications Current Medications Amoxicillin (Amoxicillin) 500 mg BID PO Last administered on 01/31/17 09:06; Admin Dose 500 MG; Start 01/30/17 at 09:00 Cephalexin (Keflex) 500 mg Q6 PO Last administered on 01/31/17 12:17; Admin Dose 500 MG; Start 01/30/17 at 06:00 Erythromycin (Erythromycin Oph Oint) 1 applic BID RIGHT EYE Last administered on 01/31/17 09:07; Admin Dose 1 APPLIC; Start 01/30/17 at 09:00 Ibuprofen (Motrin) 400 mg Q6 PO Last administered on 01/31/17 12:18; Admin Dose 400 MG; Start 01/30/17 at 06:00 Naproxen (Naprosyn) 500 mg BID PRN PO PAIN AND/OR INFLAMMATION; Start 01/30/17 at 01:30 Neomycin/ Polymyxin/ Hydrocortisone (Cortisporin Otic Susp) 4 drop QID RIGHT EAR Last administered on 01/31/17 12:18; Admin Dose 4 DROP; Start 01/30/17 at 09 :00 Aspirin (Aspirin) 81 mg DAILY PO Last administered on 01/31/17 09:06; Admin Dose 81 MG; Start 01/30/17 at 09:00 Atorvastatin Calcium (Lipitor) 20 mg HS PO Last administered on 01/30/17 20:09 ; Admin Dose 20 MG; Start 01/30/17 at 21:00 Morphine Sulfate (morphine) 2 mg Q4H PRN IV PAIN LEVEL 4-7; Start 01/30/17 at 01 :30 Acetaminophen (Tylenol Tab) 650 mg Q6H PRN PO PAIN AND OR ELEVATED TEMP; Start 01/30/17 at 01:30 Enoxaparin Sodium (Lovenox) 40 mg DAILY SC Last administered on 01/31/17 09:19 ; Admin Dose 40 MG; Start 01/30/17 at 09:00 Ondansetron HCl (Zofran Inj) 4 mg Q6H PRN IV NAUSEA AND/OR VOMITING; Start 01/30 at 01:30 Hydralazine HCl (Apresoline) 10 mg Q4H PRN IV SBP > 170 Last administered on 12:27; Admin Dose 10 MG; Start 01/30/17 at 01:30 Dexamethasone (Decadron) 4 mg Q6 IV Last administered on 01/31/17 12:20; Admin Dose 4 MG; Start 01/30/17 at 09:00 Acyclovir (Zovirax) 800 mg TID PO Last administered on 01/31/17 12:17; Admin Dose 800 MG; Start 01/30/17 at 09:00 Lisinopril (Zestril) 10 mg DAILY PO Last administered on 01/31/17 09:08; Admin Dose 10 MG; Start 01/30/17 at 17:30 Diagnostic Test (Pha) (Accu-Chek) 1 ea 02 XX ; Start 01/31/17 at 02:00 Miscellaneous Information 1 ea NOTE XX ; Start 01/30/17 at 19:30 Glucose (Glutose) 15 gm Q15M PRN PO DECREASED GLUCOSE; Start 01/30/17 at 19:30 Glucose (Glutose) 22.5 gm Q15M PRN PO DECREASED GLUCOSE; Start 01/30/17 at 19:30 Dextrose (D50w Syringe) 25 ml Q15M PRN IV DECREASED GLUCOSE; Start 01/30/17 at 19:30 Dextrose (D50w Syringe) 50 ml Q15M PRN IV DECREASED GLUCOSE; Start 01/30/17 at 19:30 Glucagon (Glucagen) 1 mg Q15M PRN IM DECREASED GLUCOSE; Start 01/30/17 at 19:30 Glucose (Glutose) 15 gm Q15M PRN BUCCAL DECREASED GLUCOSE; Start 01/30/17 at 19: 30 Insulin Glargine (Lantus) 15 unit HS SC Last administered on 01/30/17 23:23; Admin Dose 15 UNIT; Start 01/30/17 at 21:05 ALPA HUBER Jan 31, 2017 15:30
[2017-01-31] MEDS: VALACYCLOVIR 500 MG TAB PO SCH (21:14)
[2017-01-31] MEDS: ATORVASTATIN 20 MG TAB PO SCH (21:15)
[2017-01-31] MEDS: INSULIN GLARGINE [LANtus] 3 ML PEN SC SCH (21:19)
[2017-02-01] VITALS (8 sets, daily range): BP systolic 145–158; BP diastolic 66–76; PULSE 54–74; RESP 18–20
[2017-02-01] MEDS: ACCU-CHEK XX SCH (02:00)
[2017-02-01] MEDS: IBUPROFEN 400 MG TAB PO SCH ×2 (05:31→12:24)
[2017-02-01] MEDS: CEPHALEXIN 500 MG CAP PO SCH ×2 (05:31→12:24)
[2017-02-01 07:04] LABS: ADD SCAN DIFF NO
[2017-02-01 07:17] LABS: BASOPHILS % 0.1 % (0.0-2.0); HEMATOCRIT 38.7 % (37.0-47.0); HEMOGLOBIN 12.6 g/dl (12.0-16.0); LYMPHOCYTES # 2.5 10^3/ul (0.8-2.9); LYMPHOCYTES % 11.5 % (15.0-51.0); MEAN CORPUSCULAR HEMOGLOBIN 30.1 pg (29.0-33.0); MEAN CORPUSCULAR HGB CONC 32.6 g/dl (32.0-37.0); MEAN CORPUSCULAR VOLUME 92.6 fl (82.0-101.0); MONOCYTE # 0.8 10^3/ul (0.3-0.9); MONOCYTES % 3.5 % (0.0-11.0); NEUTROPHIL # 18.4 10^3/ul (1.6-7.5); NEUTROPHILS % 83.8 % (39.0-77.0); PLATELET COUNT 322 10^3/UL (140-415); RED BLOOD COUNT 4.18 10^6/ul (4.20-5.40); RED CELL DISTRIBUTION WIDTH 13.4 % (11.5-14.5)
[2017-02-01 07:51] LABS: CALCIUM 9.2 mg/dl (8.4-10.2); CREATININE 1.05 mg/dl (0.44-1.00); POTASSIUM 4.2 mmol/L (3.5-5.1)
[2017-02-01] MEDS: INSULIN ASPART [NOVOLOG] 3 ML PEN SC SCH ×4 (08:30→12:22)
[2017-02-01] MEDS: AMOXICILLIN 500 MG CAP PO SCH (08:41)
[2017-02-01] MEDS: VALACYCLOVIR 500 MG TAB PO SCH ×2 (08:41→12:24)
[2017-02-01] MEDS: ASPIRIN 81 MG TAB PO SCH (08:41)
[2017-02-01] MEDS: ERYTHROMYCIN 1 GM OPH OINT RIGHT EYE SCH (08:42)
[2017-02-01] MEDS: NEOMYC/POLYMYX/HC 10 ML OTIC SUSP RIGHT EAR SCH ×2 (08:43→12:24)
[2017-02-01] MEDS: ENOXAPARIN 40 MG/0.4 ML SYG SC SCH (08:45)
[2017-02-01] MEDS ORDERED: predniSONE 20 MG TAB PO SCH (09:00)
[2017-02-01] MEDS ORDERED: LISINOPRIL 20 MG TAB PO SCH (09:00)
[2017-02-01] MEDS ORDERED: PRED20TA PO (10:26)
[2017-02-01] MEDS ORDERED: VALA500T PO (10:26)
--- NOTE | 2017-02-01 10:27 | PDOCDIS ---
Discharge Instructions CONDITION Patient Condition: Good HOME CARE INSTRUCTIONS: Special Diet: DIABETIC DIET ACTIVITY: Activity Restrictions: No Restrictions FOLLOW UP/APPOINTMENTS Appointments F/U WITH YOUR PCP IN 1-2 WEEKS ALPA HUBER Feb 01, 2017 10:27
--- NOTE | 2017-02-02 03:15 | DS ---
DATE OF ADMISSION: 01/29/2017 DATE OF DISCHARGE: 02/01/2017 DISCHARGE DIAGNOSES: 1. Left-sided facial droop secondary to Duncan's palsy, discharge with Valtrex and prednisone. 2. Hypertension. Continue home medication. BP is now stable. 3. Diabetes. Continue home medications. 4. Recently diagnosed otitis externa, continue prescribed antibiotics. HOSPITAL COURSE: The patient is a 66-year-old female with a history of hypertension and diabetes. The patient presents with left facial droop. She had a workup with head CTA and neck CTA that showe d mild findings, but no evidence of any significant occlusion. She did have a brain CT that was als o showing no acute process. Brain MRI was showing no acute process as well. The patient's physical exam was consistent with Duncan's palsy that she had both upper and lower motor neuron paralysis cons istent with diagnosis of Duncan's palsy. The patient was started on steroids as well as Valtrex. Her symptoms did improve slightly during her hospitalization. Of note, her hospitalization was somewha t delayed secondary to severe hypertension. The patient's blood pressure was eventually controlled. On the day of discharge, the patient's vitals, labs, physical exam were stable. She had no acute complaints and questions answered. CONDITION ON DISCHARGE: Stable. DISPOSITION: To home. MEDICATIONS: 1. The patient was given prednisone 60 mg daily for 6 days as well as valacyclovir 1000 mg p.o. t.i .d. for 5 days. 2. The patient is to continue her other home medications. FOLLOWUP: The patient is to follow up with her PCP in 1 to 2 weeks. Greater than 30 minutes was spent coordinating discharge of this patient. Dictated By: ALPA HUBER MD BS/NTS Conf#: [id number] DID#: [id number]
== END 2017-02-01 13:30 | disposition home or self-care (01) | DRG 74 ==
LOC: E/R 20:36 → TEL 23:03
PROVIDERS: ADMIT Internal Medicine; ATTEND Internal Medicine
DX: G51.0 Bell's palsy (principal); I16.0 Hypertensive urgency; E11.9 Type 2 diabetes mellitus without complications; H60.90 Unspecified otitis externa, unspecified ear
CPT/HCPCS: 36415; 70450; 70496; 70498; 70551; 71010; 80048; 80061; 80307; 81003; 82962; 83036; 83735; 84100; 84443; 84484; 85025; 85610; 85730; 92610; 93005; 96374; J0360; J1100; J1650; J1815; J7512; Q9967

== ENCOUNTER 2017-09-09 14:38 | Emergency (ER) | END 2017-09-09 19:40 | disposition home or self-care (01) ==

== ENCOUNTER 2017-09-26 14:33 | Emergency (ER) | END 2017-09-26 18:25 | disposition left against medical advice (07) ==

== ENCOUNTER 2017-09-29 08:59 | Emergency (ER) | END 2017-09-29 12:48 | disposition home or self-care (01) ==

== ENCOUNTER 2018-08-13 11:44 | Emergency (ER) | END 2018-08-13 18:26 | disposition home or self-care (01) ==

== ENCOUNTER 2019-01-28 09:23 | Inpatient (IN) | payer MEDICAID ==
[~2019-01-28] VITALS: Ht 152.4 cm; Wt 71.2 kg
[~2019-01-28 09:23] MED LIST changes: -AMO500 PO; +ATOR40TA68 PO; -CEPH500C PO; +DOXA8TAB65 PO; -ERYT1OIN6 RIGHT EYE; -HTN MED; +IBUP-1542 PO; +IBUP-1545 PO; -IBUP400T22 PO; +LOSA100T15 PO; +MECL12.574 PO; +METO200T49 PO; -NAPR-260 PO; -NPH10OT RIGHT EAR; +PIOG30TA71 PO; +POTA20TA15 PO; +SITA1TAB5 PO; +[UNRECOGNIZED DRUG - CODE] PO; -[UNRECOGNIZED DRUG - REMARK]
[2019-01-28] MEDS ORDERED: morphine 4 MG/ML VIAL IV STA (09:48)
[2019-01-28] MEDS ORDERED: ONDANSETRON 4 MG INJ IV STA (09:48)
[2019-01-28] MEDS ORDERED: AMPICILLIN/SULB 3 GM/NS (PMX) 100 ML IVPB ONE (11:30)
[2019-01-28] MEDS ORDERED: IBUP-1545 PO (11:33)
[2019-01-28] MEDS ORDERED: AMLO2.5T78 PO (11:33)
[2019-01-28] MEDS ORDERED: VERA120T10 PO (11:34)
[2019-01-28] MEDS ORDERED: ROSU40TA35 PO (11:35)
[2019-01-28] MEDS ORDERED: DOXA8TAB65 PO (11:35)
[2019-01-28] MEDS ORDERED: [UNRECOGNIZED DRUG - CODE] PO (11:35)
[2019-01-28] MEDS ORDERED: DAPA1TAB3 PO (11:36)
[2019-01-28] MEDS ORDERED: ACETAMINOPHEN 325 MG TAB PO PRN (12:00)
[2019-01-28] MEDS ORDERED: ONDANSETRON 4 MG INJ IV PRN (12:00)
--- NOTE | 2019-01-28 12:36 | ERD ---
ER Documentation Chief Complaint Chief Complaint ABD PAIN FOR THE PAST WEEK. NAUSEA AND VOMITNG NO DYSURIA. RADIATE TO BACK HPI Patient is a 68-year-old female with hypertension and diabetes who presents with abdominal pain. The patient started on with right upper quadrant abdominal pain which radiates to the flank. The patient was seen and [place] by another doctor and was told to get an ultrasound. She has fever and vomiting. Upon review of old medical records this is the patient's 10th visit to the ER since 2009. Her primary doctor is Dr. Pierson. ROS All systems reviewed and are negative except as per history of present illness. Medications Home Meds Reported Medications Dapagliflozin/Metformin HCl (Xigduo Xr 5 mg-1,000 mg Tablet) 1 Each Tab.bp.24h, 2 EACH PO DAILY, TAB 01/28/19 Rosuvastatin Calcium* (Crestor*) 40 Mg Tablet, 40 MG PO QHS, #30 TAB 01/28/19 Doxazosin Mesylate* (Doxazosin Mesylate*) 8 Mg Tablet, 8 MG PO HS, TAB 01/28/19 Verapamil Hcl* (Isoptin*) 120 Mg Tab, 120 MG PO BID, TAB 01/28/19 Ibuprofen* (Ibuprofen*) 800 Mg Tab, 800 MG PO Q6H PRN for PAIN, TAB 01/28/19 Amlodipine Besylate* (Amlodipine Besylate*) 2.5 Mg Tablet, 2.5 MG PO DAILY, #30 TAB 01/28/19 Discontinued Reported Medications Verapamil Hcl* (Verapamil ER*) 120 Mg Tablet.er, 120 MG PO BID, TAB.SA 01/28/19 Doxazosin Mesylate* (Doxazosin Mesylate*) 8 Mg Tablet, 8 MG PO HS, TAB 09/09/17 Sitagliptin Phos/Metformin HCl (Janumet 50-1,000 mg Tablet) 1 Each Tablet, 1 EACH PO BID, TAB 09/09/17 Atorvastatin* (Atorvastatin*) 40 Mg Tablet, 40 MG PO DAILY, #30 TAB 09/09/17 Pioglitazone Hcl* (Pioglitazone Hcl*) 30 Mg Tablet, 30 MG PO DAILY, TAB 09/09/17 Losartan Potassium* (Losartan Potassium*) 100 Mg Tablet, 100 MG PO DAILY, TAB 09/09/17 Metoprolol Succinate* (Toprol XL*) 200 Mg Tab.sr.24h, 200 MG PO DAILY, #30 TAB 09/09/17 Ibuprofen* (Ibuprofen*) 800 Mg Tab, 800 MG PO Q8H PRN for PAIN, TAB 09/09/17 Verapamil Hcl* (Isoptin*) 120 Mg Tab, 120 MG PO BID, TAB 09/09/17 Discontinued Scripts Potassium Chloride* (K-Dur*) 20 Meq Tab.prt.sr, 20 MEQ PO DAILY for 5 Days, #5 TAB.SA Prov:KRISTAL POE MD 08/13/18 Ibuprofen* (Motrin*) 600 Mg Tab, 600 MG PO Q8 for PAIN AND/OR INFLAMMATION, #30 TAB Prov:NIKKI ROCHA MD 09/29/17 Meclizine Hcl* (Antivert*) 12.5 Mg Tab, 25 MG PO Q6H PRN for DIZZINESS, #20 TAB Prov:BELEN LIU MD 09/09/17 Allergies Allergies: Coded Allergies: No Known Drug Allergy (Verified Allergy, Mild, 01/28/19) PMhx/Soc History of Surgery: Yes (tonsillectomy 2014) Anesthesia Reaction: No Hx Neurological Disorder: No Hx Respiratory Disorders: No Hx Cardiac Disorders: Yes (HTN) Hx Psychiatric Problems: No Hx Miscellaneous Medical Probl: Yes (dm) Hx Alcohol Use: No Hx Substance Use: No Hx Tobacco Use: No Smoking Status: Never smoker FmHx Family History: No diabetes Physical Exam Vitals Vital Signs Date Temp Pulse Resp B/P (MAP) Pulse Ox O2 O2 Flow FiO2 Time Delivery Rate 01/28/19 98.8 75 20 144/83 99 Nasal 12:30 (103) Cannula 01/28/19 97.3 89 18 163/92 98 09:27 (115) Physical Exam Const: Moderate distress Head: Atraumatic Eyes: Normal Conjunctiva ENT: Normal External Ears, Nose and Mouth. Neck: Full range of motion. No meningismus. Resp: Clear to auscultation bilaterally Cardio: Regular rate and rhythm, no murmurs Abd: Right upper quadrant tenderness to palpation with guarding Skin: No petechiae or rashes Back: No midline or flank tenderness Ext: No cyanosis, or edema Neur: Awake and alert Psych: Normal Mood and Affect Result Diagram: 01/28/19 1045 01/28/19 1045 Results 24 hrs Laboratory Tests Test 01/28/19 10:45 01/28/19 12:09 White Blood Count 14.0 10^3/ul Red Blood Count 4.36 10^6/ul Hemoglobin 13.2 g/dl Hematocrit 40.4 % Mean Corpuscular Volume 92.7 fl Mean Corpuscular Hemoglobin 30.3 pg Mean Corpuscular Hemoglobin Concent 32.7 g/dl Red Cell Distribution Width 13.5 % Platelet Count 290 10^3/UL Mean Platelet Volume 9.8 fl Immature Granulocytes % 0.400 % Neutrophils % 81.2 % Lymphocytes % 12.6 % Monocytes % 5.0 % Eosinophils % 0.6 % Basophils % 0.2 % Nucleated Red Blood Cells % 0.0 /100WBC Immature Granulocytes # 0.060 10^3/ul Neutrophils # 11.4 10^3/ul Lymphocytes # 1.8 10^3/ul Monocytes # 0.7 10^3/ul Eosinophils # 0.1 10^3/ul Basophils # 0.0 10^3/ul Nucleated Red Blood Cells # 0.0 10^3/ul Prothrombin Time 12.5 Sec Prothrombin Time Ratio 1.0 INR International Normalized Ratio 0.92 Activated Partial Thromboplast Time 35.6 Sec Urine Color KRISTAL Urine Clarity SLIGHTLY CLOUDY Urine pH 5.0 Urine Specific [place] 1.023 Urine Ketones TRACE mg/dL Urine Nitrite NEGATIVE mg/dL Urine Bilirubin NEGATIVE mg/dL Urine Urobilinogen 2+ mg/dL Urine Leukocyte Esterase 1+ [place]ita/ul Urine Microscopic RBC 2 /HPF Urine Microscopic WBC 17 /HPF Urine Squamous Epithelial Cells FEW /HPF Urine Bacteria FEW /HPF Urine Hyaline Casts FEW /HPF Urine Granular Casts FEW /HPF Urine Mucus MODERATE /HPF Urine Hemoglobin NEGATIVE mg/dL Urine Glucose 3+ mg/dL Urine Total Protein 2+ mg/dl Sodium Level 141 mmol/L Potassium Level 3.1 mmol/L Chloride Level 103 mmol/L Carbon Dioxide Level 26 mmol/L Anion Gap 12 Blood Urea Nitrogen 18 mg/dl Creatinine 0.93 mg/dl Est Glomerular Filtrat Rate mL/min 60 mL/min Glucose Level 168 mg/dl Calcium Level 9.3 mg/dl Total Bilirubin 0.9 mg/dl Direct Bilirubin 0.00 mg/dl Indirect Bilirubin 0.9 mg/dl Aspartate Amino Transf (AST/SGOT) 22 IU/L Alanine Aminotransferase (ALT/SGPT) 6 IU/L Alkaline Phosphatase 135 IU/L Troponin I < 0.012 ng/ml Total Protein 8.8 g/dl Albumin 4.2 g/dl Globulin 4.60 g/dl Albumin/Globulin Ratio 0.91 Lipase 45 U/L POC Venous Lactate 0.8 mmol/L Current Medications Medications Dose Sig/Shawn Start Time Status Last (Trade) Ordered Route PRN Stop Time Admin Dose Reason Admin Morphine 4 mg ONCE STAT 01/28/19 DC 01/28/19 Sulfate IV 09:48 01/28/19 10:52 (morphine) 09:49 Ondansetron 4 mg ONCE STAT 01/28/19 DC 01/28/19 HCl (Zofran IV 09:48 01/28/19 10:52 Inj) 09:49 Ampicillin 100 ml @ ONCE ONCE 01/28/19 DC 01/28/19 Sodium/ 100 mls/hr IVPB 11:30 01/28/19 11:39 Sulbactam 12:29 Sodium Ondansetron 4 mg BRIDGE ORDER 01/28/19 HCl (Zofran PRN IV 12:00 01/29/19 Inj) NAUSEA/VOMITI 11:59 NG 650 mg ER BRIDGE 01/28/19 Acetaminophen PRN PO 12:00 01/29/19 (Tylenol .MILD PAIN 11:59 Tab) 1-3 OR TEMP Procedures/MDM CT abdomen pelvis shows acute cholecystitis per radiology. Ultrasound of the gallbladder shows acute cholecystitis per radiology. Chest x-ray read by radiology. EKG read by me: Rate/Rhythm: Regular rate and rhythm at a normal rate Intervals: Normal Impression: No evidence of ischemia or arrhythmia Patient is a 68-year-old female who presents with acute cholecystitis. I doubt sepsis at this time. She was given Unasyn. Laboratory studies show an elevated white blood cell count but lipase and LFTs were basically normal. The patient will be admitted to the care of the panel team to a medical surgical bed and I spoke with Dr. Andre the surgeon on-call who will see the patient in consultation for cholecystectomy. Departure Diagnosis: Primary Impression: Cholecystitis Additional Impression: Abdominal pain Abdominal location: right upper quadrant Qualified Codes: R10.11 - Right upper quadrant pain Condition: BELEN Quan MD Jan 28, 2019 12:36
[2019-01-28] MEDS ORDERED: IBUPROFEN 800 MG TAB PO PRN (13:00)
[2019-01-28] MEDS ORDERED: NACL 0.9% 3 ML SYG IV SCH (13:00)
[2019-01-28 13:10] VITALS: BP 152/82; PULSE 72; RESP 20
[2019-01-28] MEDS: PIPER-TAZO 3.375 GM IV (PMX) 100 ML IVPB SCH ×2 (13:55→21:30)
[2019-01-28] MEDS ORDERED: GLUCOSE GEL 15 GRAM TUBE BUCCAL PRN (15:00)
[2019-01-28] MEDS ORDERED: GLUCOSE GEL 15 GRAM TUBE PO PRN ×2 (15:00)
[2019-01-28] MEDS ORDERED: GLUCAGON 1 MG INJ IM PRN (15:00)
[2019-01-28] MEDS ORDERED: DEXTROSE 50% 50 ML SYRINGE IV PRN ×2 (15:00)
--- NOTE | 2019-01-28 15:19 | PN ---
Date/Time of Note Date/Time of Note DATE: 01/28/19 TIME: 15:17 Assessment/Plan VTE Prophylaxis SCD applied (from Nsg): Yes Pharmacological prophylaxis: heparin Lines/Catheters IV Catheter Type (from Nrsg): [place] Urinary Cath still in place: No Assessment/Plan Hospital Course 68 yo female with DMII who presents with acute cholecystitis - IV zosyn - Dr Andre consulted for consideration of cholecystectomy - IV fluids - Pain control DMII: - Basal/bolus insulin Result Diagram: 01/28/19 1045 01/28/19 1045 Results 24hrs Laboratory Tests Test 01/28/19 10:45 01/28/19 12:09 White Blood Count 14.0 #H Red Blood Count 4.36 Hemoglobin 13.2 Hematocrit 40.4 Mean Corpuscular Volume 92.7 Mean Corpuscular Hemoglobin 30.3 Mean Corpuscular Hemoglobin Concent 32.7 Red Cell Distribution Width 13.5 Platelet Count 290 Mean Platelet Volume 9.8 Immature Granulocytes % 0.400 Neutrophils % 81.2 H Lymphocytes % 12.6 L Monocytes % 5.0 Eosinophils % 0.6 Basophils % 0.2 Nucleated Red Blood Cells % 0.0 Immature Granulocytes # 0.060 H Neutrophils # 11.4 H Lymphocytes # 1.8 Monocytes # 0.7 Eosinophils # 0.1 Basophils # 0.0 Nucleated Red Blood Cells # 0.0 Prothrombin Time 12.5 Prothrombin Time Ratio 1.0 INR International Normalized Ratio 0.92 Activated Partial Thromboplast Time 35.6 H Urine Color KRISTAL Urine Clarity SLIGHTLY CLOUDY A Urine pH 5.0 Urine Specific [place] 1.023 Urine Ketones TRACE A Urine Nitrite NEGATIVE Urine Bilirubin NEGATIVE Urine Urobilinogen 2+ H Urine Leukocyte Esterase 1+ H Urine Microscopic RBC 2 Urine Microscopic WBC 17 H Urine Squamous Epithelial Cells FEW Urine Bacteria FEW A Urine Hyaline Casts FEW A Urine Granular Casts FEW A Urine Mucus MODERATE Urine Hemoglobin NEGATIVE Urine Glucose 3+ H Urine Total Protein 2+ H Sodium Level 141 Potassium Level 3.1 L Chloride Level 103 Carbon Dioxide Level 26 Anion Gap 12 Blood Urea Nitrogen 18 Creatinine 0.93 Est Glomerular Filtrat Rate mL/min 60 Glucose Level 168 Calcium Level 9.3 Total Bilirubin 0.9 Direct Bilirubin 0.00 Indirect Bilirubin 0.9 Aspartate Amino Transf (AST/SGOT) 22 Alanine Aminotransferase (ALT/SGPT) 6 L Alkaline Phosphatase 135 H Troponin I < 0.012 Total Protein 8.8 H Albumin 4.2 Globulin 4.60 H Albumin/Globulin Ratio 0.91 Lipase 45 POC Venous Lactate 0.8 Subjective 24 Hr Interval Summary Free Text/Dictation 68 yo female with DMII who presents with RUQ pain Pain started last . Initially tolerable but it has become worse and worse. Came to ED today where imaging has revealed acute cholecystitis. She has been given analgesia and abx. No abdominal pain now. Only complaint is of thirst and requests water Constitutional: no complaints, improved Eyes: no complaints ENT: no complaints Respiratory: no complaints Cardiovascular: no complaints Gastrointestinal: no complaints Genitourinary: no complaints Musculoskeletal: no complaints Skin: no complaints Neurologic: no complaints Endocrine: no complaints Lymphatic: no complaints Psychological: no complaints, nl mood/affect Immunologic: no complaints Exam/Review of Systems Exam Vitals Vital Signs Date Temp Pulse Resp B/P (MAP) Pulse Ox O2 O2 Flow FiO2 Time Delivery Rate 01/28/19 98.8 75 20 144/83 99 Nasal 12:30 (103) Cannula Constitutional: alert, oriented, well developed Psych: no complaints, nl mood/affect Head: normocephalic, atraumatic Eyes: nl conjunctiva, EOMI, nl lids, nl sclera, PERRL ENMT: nl external ears & nose, nl lips & teeth, nl nasal mucosa & septum Neck: supple, non-tender Respiratory: clear to auscultation, normal air movement Cardiovascular: regular rate and rhythm, nl pulses Gastrointestinal: soft, nl liver, spleen, non-tender Musculoskeletal: nl extremities to inspection, nl gait and stance Extremities: normal pulses Neurological: FISHER POUND NET OR TRAP II-XII intact, nl mental status, nl speech, nl strength Skin: nl turgor; No rash or lesions Lymph: nl lymph nodes Results Results 24hrs Laboratory Tests Test 01/28/19 10:45 01/28/19 12:09 White Blood Count 14.0 #H Red Blood Count 4.36 Hemoglobin 13.2 Hematocrit 40.4 Mean Corpuscular Volume 92.7 Mean Corpuscular Hemoglobin 30.3 Mean Corpuscular Hemoglobin Concent 32.7 Red Cell Distribution Width 13.5 Platelet Count 290 Mean Platelet Volume 9.8 Immature Granulocytes % 0.400 Neutrophils % 81.2 H Lymphocytes % 12.6 L Monocytes % 5.0 Eosinophils % 0.6 Basophils % 0.2 Nucleated Red Blood Cells % 0.0 Immature Granulocytes # 0.060 H Neutrophils # 11.4 H Lymphocytes # 1.8 Monocytes # 0.7 Eosinophils # 0.1 Basophils # 0.0 Nucleated Red Blood Cells # 0.0 Prothrombin Time 12.5 Prothrombin Time Ratio 1.0 INR International Normalized Ratio 0.92 Activated Partial Thromboplast Time 35.6 H Urine Color KRISTAL Urine Clarity SLIGHTLY CLOUDY A Urine pH 5.0 Urine Specific [place] 1.023 Urine Ketones TRACE A Urine Nitrite NEGATIVE Urine Bilirubin NEGATIVE Urine Urobilinogen 2+ H Urine Leukocyte Esterase 1+ H Urine Microscopic RBC 2 Urine Microscopic WBC 17 H Urine Squamous Epithelial Cells FEW Urine Bacteria FEW A Urine Hyaline Casts FEW A Urine Granular Casts FEW A Urine Mucus MODERATE Urine Hemoglobin NEGATIVE Urine Glucose 3+ H Urine Total Protein 2+ H Sodium Level 141 Potassium Level 3.1 L Chloride Level 103 Carbon Dioxide Level 26 Anion Gap 12 Blood Urea Nitrogen 18 Creatinine 0.93 Est Glomerular Filtrat Rate mL/min 60 Glucose Level 168 Calcium Level 9.3 Total Bilirubin 0.9 Direct Bilirubin 0.00 Indirect Bilirubin 0.9 Aspartate Amino Transf (AST/SGOT) 22 Alanine Aminotransferase (ALT/SGPT) 6 L Alkaline Phosphatase 135 H Troponin I < 0.012 Total Protein 8.8 H Albumin 4.2 Globulin 4.60 H Albumin/Globulin Ratio 0.91 Lipase 45 POC Venous Lactate 0.8 Medications Medication Current Medications Piperacillin Sod/ Tazobactam Sod 100 ml @ 200 mls/hr Q8 IVPB Last administered on 01/28/19at 13:55; Admin Dose 200 MLS/HR; Start 01/28/19 at 14:00 Ibuprofen (Motrin) 800 mg Q6H PRN PO PAIN; Start 01/28/19 at 13:00 IV Flush (NS 3 ml) 3 ml PER PROTOCOL IV ; Start 01/28/19 at 13:00 Enoxaparin Sodium (Lovenox) 30 mg DAILY SC ; Start 01/29/19 at 09:00 Insulin Glargine (Lantus) 11 units DAILY@2000 SC ; Start 01/28/19 at 20:00 Insulin Aspart (Novolog Insulin Pen) NOVOLOG *MILD* ALGORITHM WITH MEALS B EDTIME SC ; Start 01/28/19 at 17:55 Miscellaneous Information 1 ea NOTE XX ; Start 6/3/19 at 15:00 Glucose (Glutose) 15 gm Q15M PRN PO DECREASED GLUCOSE; Start 01/28/19 at 15:00 Glucose (Glutose) 22.5 gm Q15M PRN PO DECREASED GLUCOSE; Start 01/28/19 at 15:00 Dextrose (D50w Syringe) 25 ml Q15M PRN IV DECREASED GLUCOSE; Start 01/28/19 at 15:00 Dextrose (D50w Syringe) 50 ml Q15M PRN IV DECREASED GLUCOSE; Start 01/28/19 at 15:00 Glucagon (Glucagen) 1 mg Q15M PRN IM DECREASED GLUCOSE; Start 01/28/19 at 15:00 Glucose (Glutose) 15 gm Q15M PRN BUCCAL DECREASED GLUCOSE; Start 01/28/19 at 15:00 THUAN JOHN MD Jan 28, 2019 15:19
[2019-01-28] MEDS: LACTATED RINGER'S 1,000 ML IV SCH (16:23)
[2019-01-28 16:36] VITALS: Ht 152.4 cm; Wt 71.2 kg
[2019-01-28] MEDS: INSULIN ASPART [NOVOLOG] 3 ML PEN SC SCH ×2 (17:43→20:31)
[2019-01-28] MEDS: INSULIN GLARGINE [LANTus] (100 UNITS/ML) SYG SC SCH (20:31)
[2019-01-28 20:35] VITALS: BP 139/67; PULSE 70; RESP 18
[2019-01-28] MEDS ORDERED: VITAMIN A & D 5 GM OINT PACKET TOP PRN (21:00)
[2019-01-28] MEDS ORDERED: DIMETHICONE STICK TOP PRN (21:00)
--- NOTE | 2019-01-28 23:38 | CONS ---
Assessment/Plan Assessment/Plan Assessment/Plan (Daily) Acute cholecystitis with cholelithiasis pericholecystic fluid She meets criteria for cholecystectomy before discharge. As his pain is not being adequately managed patient is having postprandial symptoms. Recommendation for lap scopic cholecystectomy on this admission. The procedure risk benefits alternatives were discussed patient agrees to proceed patient will be placed on elective schedule tomorrow. Consultation Date/Type/Reason Admit Date/Time Jan 28, 2019 at 11:54 Date of Consultation: Jan 28, 2019 Type of Consult Surgery consult Reason for Consultation Abdominal pain cholelithiasis possible cholecystitis Requesting Provider: CHIP RAMOS MD= Date/Time of Note DATE: 01/28/19 TIME: 23:36 Hx of Present Illness Patient presented to the emergency room with worsening abdominal pain and epigastric right upper quadrant. Patient had remote history of similar symptoms a couple of years ago but did not seek medical attention. Evaluation emergency room patient was noted to have a large gallstone impacted in the neck of the gallbladder with surrounding gallbladder wall thickening with pericholecystic fluid consistent with acute cholecystitis patient is diabetic taking oral hypoglycemic agent metformin, also hypertensive also hypercholesterolemia As noted above Past Medical History Home Meds Reported Medications Dapagliflozin/Metformin HCl (Xigduo Xr 5 mg-1,000 mg Tablet) 1 Each Tab.bp.24h, 2 EACH PO DAILY, TAB 01/28/19 Rosuvastatin Calcium* (Crestor*) 40 Mg Tablet, 40 MG PO QHS, #30 TAB 01/28/19 Doxazosin Mesylate* (Doxazosin Mesylate*) 8 Mg Tablet, 8 MG PO HS, TAB 01/28/19 Verapamil Hcl* (Isoptin*) 120 Mg Tab, 120 MG PO BID, TAB 01/28/19 Ibuprofen* (Ibuprofen*) 800 Mg Tab, 800 MG PO Q6H PRN for PAIN, TAB 01/28/19 Amlodipine Besylate* (Amlodipine Besylate*) 2.5 Mg Tablet, 2.5 MG PO DAILY, #30 TAB 01/28/19 Discontinued Reported Medications Verapamil Hcl* (Verapamil ER*) 120 Mg Tablet.er, 120 MG PO BID, TAB.SA 01/28/19 Doxazosin Mesylate* (Doxazosin Mesylate*) 8 Mg Tablet, 8 MG PO HS, TAB 09/09/17 Sitagliptin Phos/Metformin HCl (Janumet 50-1,000 mg Tablet) 1 Each Tablet, 1 EACH PO BID, TAB 09/09/17 Atorvastatin* (Atorvastatin*) 40 Mg Tablet, 40 MG PO DAILY, #30 TAB 09/09/17 Pioglitazone Hcl* (Pioglitazone Hcl*) 30 Mg Tablet, 30 MG PO DAILY, TAB 09/09/17 Losartan Potassium* (Losartan Potassium*) 100 Mg Tablet, 100 MG PO DAILY, TAB 09/09/17 Metoprolol Succinate* (Toprol XL*) 200 Mg Tab.sr.24h, 200 MG PO DAILY, #30 TAB 09/09/17 Ibuprofen* (Ibuprofen*) 800 Mg Tab, 800 MG PO Q8H PRN for PAIN, TAB 09/09/17 Verapamil Hcl* (Isoptin*) 120 Mg Tab, 120 MG PO BID, TAB 09/09/17 Discontinued Scripts Potassium Chloride* (K-Dur*) 20 Meq Tab.prt.sr, 20 MEQ PO DAILY for 5 Days, #5 TAB.SA Prov:KRISTAL POE MD 08/13/18 Ibuprofen* (Motrin*) 600 Mg Tab, 600 MG PO Q8 for PAIN AND/OR INFLAMMATION, #30 TAB Prov:NIKKI ROCHA MD 09/29/17 Meclizine Hcl* (Antivert*) 12.5 Mg Tab, 25 MG PO Q6H PRN for DIZZINESS, #20 TAB Prov:BELEN LIU MD 09/09/17 Medications Current Medications Piperacillin Sod/ Tazobactam Sod 100 ml @ 200 mls/hr Q8 IVPB Last administered on 01/28/19at 21:30; Admin Dose 200 MLS/HR; Start 01/28/19 at 14:00 Ibuprofen (Motrin) 800 mg Q6H PRN PO PAIN; Start 01/28/19 at 13:00 IV Flush (NS 3 ml) 3 ml PER PROTOCOL IV ; Start 01/28/19 at 13:00 Enoxaparin Sodium (Lovenox) 30 mg DAILY SC ; Start 01/29/19 at 09:00 Insulin Glargine (Lantus) 11 units DAILY@2000 SC Last administered on 01/28/19at 20:31; Admin Dose 11 UNITS; Start 01/28/19 at 20:00 Insulin Aspart (Novolog Insulin Pen) NOVOLOG *MILD* ALGORITHM WITH MEALS BEDTIME SC ; Start 01/28/19 at 17:55 Miscellaneous Information 1 ea NOTE XX ; Start 01/28/19 at 15:00 Glucose (Glutose) 15 gm Q15M PRN PO DECREASED GLUCOSE; Start 01/28/19 at 15:00 Glucose (Glutose) 22.5 gm Q15M PRN PO DECREASED GLUCOSE; Start 01/28/19 at 15:00 Dextrose (D50w Syringe) 25 ml Q15M PRN IV DECREASED GLUCOSE; Start 01/28/19 at 15:00 Dextrose (D50w Syringe) 50 ml Q15M PRN IV DECREASED GLUCOSE; Start 01/28/19 at 15:00 Glucagon (Glucagen) 1 mg Q15M PRN IM DECREASED GLUCOSE; Start 01/28/19 at 15:00 Glucose (Glutose) 15 gm Q15M PRN BUCCAL DECREASED GLUCOSE; Start 01/28/19 at 15:00 Lactated Ringer's 1,000 ml @ 75 mls/hr [id number] IV Last administered on 01/28/19at 16:23; Admin Dose 75 MLS/HR; Start 01/28/19 at 16:00 Dimethicone (Blistex Lip [place]) 1 applic Q2H PRN TOP dry lips; Start 01/28/19 at 21:00 Allergies: Coded Allergies: No Known Drug Allergy (Verified Allergy, Mild, 01/28/19) Social History Smoking Status: Former smoker Exam/Review of Systems Exam Vitals Vital Signs Date Temp Pulse Resp B/P (MAP) Pulse Ox O2 O2 Flow FiO2 Time Delivery Rate 01/28/19 98.6 70 18 139/67 98 20:35 (91) 01/28/19 Nasal 2.0 13:10 Cannula Gastrointestinal: tender (Right upper quadrant) Results Result Diagram: 01/28/19 1045 01/28/19 1045 Results 24hrs Laboratory Tests Test 01/28/19 10:45 01/28/19 12:09 01/28/19 13:35 01/28/19 15:55 White Blood Count 14.0 #H Red Blood Count 4.36 Hemoglobin 13.2 Hematocrit 40.4 Mean Corpuscular 92.7 Volume Mean Corpuscular 30.3 Hemoglobin Mean Corpuscular 32.7 Hemoglobin Concent Red Cell 13.5 Distribution Width Platelet Count 290 Mean Platelet 9.8 Volume Immature 0.400 Granulocytes % Neutrophils % 81.2 H Lymphocytes % 12.6 L Monocytes % 5.0 Eosinophils % 0.6 Basophils % 0.2 Nucleated Red 0.0 Blood Cells % Immature 0.060 H Granulocytes # Neutrophils # 11.4 H Lymphocytes # 1.8 Monocytes # 0.7 Eosinophils # 0.1 Basophils # 0.0 Nucleated Red 0.0 Blood Cells # Prothrombin Time 12.5 Prothrombin Time 1.0 Ratio INR International 0.92 Normalized Ratio Activated 35.[address] Time Urine Color KRISTAL Urine Clarity SLIGHTLY CLOUDY A Urine pH 5.0 Urine Specific 1.023 [place] Urine Ketones TRACE A Urine Nitrite NEGATIVE Urine Bilirubin NEGATIVE Urine Urobilinogen 2+ H Urine Leukocyte 1+ H Esterase Urine Microscopic 2 RBC Urine Microscopic 17 H WBC Urine Squamous FEW Epithelial Cells Urine Bacteria FEW A Urine Hyaline FEW A Casts Urine Granular FEW A Casts Urine Mucus MODERATE Urine Hemoglobin NEGATIVE Urine Glucose 3+ H Urine Total 2+ H Protein Sodium Level 141 Potassium Level 3.1 L Chloride Level 103 Carbon Dioxide 26 Level Anion Gap 12 Blood Urea 18 Nitrogen Creatinine 0.93 Est Glomerular 60 Filtrat Rate mL/min Glucose Level 168 Calcium Level 9.3 Total Bilirubin 0.9 Direct Bilirubin 0.00 Indirect Bilirubin 0.9 Aspartate Amino 22 Transf (AST/SGOT) Alanine 6 L Aminotransferase ( ALT/SGPT) Alkaline 135 H Phosphatase Troponin I < 0.012 Total Protein 8.8 H Albumin 4.2 Globulin 4.60 H Albumin/Globulin 0.91 Ratio Lipase 45 POC Venous Lactate 0.8 Lactic Acid Level 1.3 0.8 Test 01/28/19 17:38 01/28/19 20:28 Bedside Glucose 151 136 Medications Medication Current Medications Piperacillin Sod/ Tazobactam Sod 100 ml @ 200 mls/hr Q8 IVPB Last administered on 01/28/19at 21:30; Admin Dose 200 MLS/HR; Start 01/28/19 at 14:00 Ibuprofen (Motrin) 800 mg Q6H PRN PO PAIN; Start 01/28/19 at 13:00 IV Flush (NS 3 ml) 3 ml PER PROTOCOL IV ; Start 01/28/19 at 13:00 Enoxaparin Sodium (Lovenox) 30 mg DAILY SC ; Start 01/29/19 at 09:00 Insulin Glargine (Lantus) 11 units DAILY@2000 SC Last administered on 01/28/19at 20:31; Admin Dose 11 UNITS; Start 01/28/19 at 20:00 Insulin Aspart (Novolog Insulin Pen) NOVOLOG *MILD* ALGORITHM WITH MEALS BEDTIME SC ; Start 01/28/19 at 17:55 Miscellaneous Information 1 ea NOTE XX ; Start 01/28/19 at 15:00 Glucose (Glutose) 15 gm Q15M PRN PO DECREASED GLUCOSE; Start 01/28/19 at 15:00 Glucose (Glutose) 22.5 gm Q15M PRN PO DECREASED GLUCOSE; Start 01/28/19 at 15:00 Dextrose (D50w Syringe) 25 ml Q15M PRN IV DECREASED GLUCOSE; Start 01/28/19 at 15:00 Dextrose (D50w Syringe) 50 ml Q15M PRN IV DECREASED GLUCOSE; Start 01/28/19 at 15:00 Glucagon (Glucagen) 1 mg Q15M PRN IM DECREASED GLUCOSE; Start 01/28/19 at 15:00 Glucose (Glutose) 15 gm Q15M PRN BUCCAL DECREASED GLUCOSE; Start 01/28/19 at 15:00 Lactated Ringer's 1,000 ml @ 75 mls/hr [id number] IV Last administered on 01/28/19at 16:23; Admin Dose 75 MLS/HR; Start 01/28/19 at 16:00 Dimethicone (Blistex Lip [place]) 1 applic Q2H PRN TOP dry lips; Start 01/28/19 at 21:00 MONE HSU MD Jan 28, 2019 23:38
[2019-01-29 02:41] VITALS: BP 139/69; PULSE 76; RESP 17
[2019-01-29] MEDS: LACTATED RINGER'S 1,000 ML IV SCH ×2 (04:57→20:44)
[2019-01-29] MEDS: PIPER-TAZO 3.375 GM IV (PMX) 100 ML IVPB SCH ×3 (06:54→21:33)
[2019-01-29 07:14] VITALS: BP 143/67; PULSE 71; RESP 19
[2019-01-29] MEDS: INSULIN ASPART [NOVOLOG] 3 ML PEN SC SCH ×4 (07:50→20:30)
[2019-01-29] MEDS: ENOXAPARIN 30 MG/0.3 ML SYG SC SCH (08:22)
--- NOTE | 2019-01-29 12:32 | PN ---
Date/Time of Note Date/Time of Note DATE: 01/29/19 TIME: 12:31 Assessment/Plan VTE Prophylaxis Risk score (from Nsg)>0 risk: 3 SCD applied (from Nsg): Yes Pharmacological prophylaxis: heparin Lines/Catheters IV Catheter Type (from Nrsg): Peripheral IV Urinary Cath still in place: No Assessment/Plan Hospital Course 68 yo female with DMII who presents with acute cholecystitis - IV zosyn - Dr Andre consulted for cholecystectomy planned for later today - IV fluids - Pain control DMII: - Basal/bolus insulin Result Diagram: 01/29/194 01/29/194 Results 24hrs Laboratory Tests Test 01/28/19 13:35 01/28/19 15:55 01/28/19 17:38 01/28/19 20:28 Lactic Acid Level 1.3 0.8 Bedside Glucose 151 136 Test 01/29/19 04:44 01/29/19 08:19 White Blood Count 10.5 # Red Blood Count 3.75 L Hemoglobin 11.3 L Hematocrit 34.9 L Mean Corpuscular Volume 93.1 Mean Corpuscular 30.1 Hemoglobin Mean Corpuscular 32.4 Hemoglobin Concent Red Cell Distribution 13.2 Width Platelet Count 272 Mean Platelet Volume 10.0 Immature Granulocytes % 0.400 Neutrophils % 70.7 Lymphocytes % 17.0 Monocytes % 8.6 Eosinophils % 3.1 Basophils % 0.2 Nucleated Red Blood 0.0 Cells % Immature Granulocytes # 0.040 H Neutrophils # 7.4 Lymphocytes # 1.8 Monocytes # 0.9 Eosinophils # 0.3 Basophils # 0.0 Nucleated Red Blood 0.0 Cells # Sodium Level 141 Potassium Level 3.2 L Chloride Level 106 Carbon Dioxide Level 27 Anion Gap 8 Blood Urea Nitrogen 25 H Creatinine 0.82 Est Glomerular Filtrat > 60 Rate mL/min Glucose Level 105 # Hemoglobin A1c 7.6 H Calcium Level 8.3 L Total Bilirubin 0.7 Direct Bilirubin 0.00 Indirect Bilirubin 0.7 Aspartate Amino 28 Transf (AST/SGOT) Alanine 21 Aminotransferase (ALT/SG PT) Alkaline Phosphatase 145 H Total Protein 6.8 # Albumin 3.3 Globulin 3.50 H Albumin/Globulin Ratio 0.94 Bedside Glucose 86 Subjective 24 Hr Interval Summary Free Text/Dictation Comfortable Awaiting cholecystectomy this evening Exam/Review of Systems Exam Vitals Vital Signs Date Temp Pulse Resp B/P (MAP) Pulse Ox O2 O2 Flow FiO2 Time Delivery Rate 01/29/19 98.1 71 19 143/67 99 07:14 (92) 01/28/19 Nasal 2.0 13:10 Cannula Intake and Output 01/28/19 01/28/19 01/29/19 1515:00 23:00 07:00 IntakeIntake Total 100 ml 100 ml 1120 ml OutputOutput Total 300 ml BalanceBalance 100 ml -200 ml 1120 ml Constitutional: alert, oriented, well developed Psych: no complaints, nl mood/affect Head: normocephalic, atraumatic Eyes: nl conjunctiva, EOMI, nl lids, nl sclera, PERRL ENMT: nl external ears & nose, nl lips & teeth, nl nasal mucosa & septum Neck: supple, non-tender Respiratory: clear to auscultation, normal air movement Cardiovascular: regular rate and rhythm, nl pulses Gastrointestinal: soft, nl liver, spleen, non-tender Musculoskeletal: nl extremities to inspection, nl gait and stance Extremities: normal pulses Neurological: LEAN FACILITATOR II-XII intact, nl mental status, nl speech, nl strength Skin: nl turgor; No rash or lesions Lymph: nl lymph nodes Results Results 24hrs Laboratory Tests Test 01/28/19 13:35 01/28/19 15:55 01/28/19 17:38 01/28/19 20:28 Lactic Acid Level 1.3 0.8 Bedside Glucose 151 136 Test 01/29/19 04:44 01/29/19 08:19 White Blood Count 10.5 # Red Blood Count 3.75 L Hemoglobin 11.3 L Hematocrit 34.9 L Mean Corpuscular Volume 93.1 Mean Corpuscular 30.1 Hemoglobin Mean Corpuscular 32.4 Hemoglobin Concent Red Cell Distribution 13.2 Width Platelet Count 272 Mean Platelet Volume 10.0 Immature Granulocytes % 0.400 Neutrophils % 70.7 Lymphocytes % 17.0 Monocytes % 8.6 Eosinophils % 3.1 Basophils % 0.2 Nucleated Red Blood 0.0 Cells % Immature Granulocytes # 0.040 H Neutrophils # 7.4 Lymphocytes # 1.8 Monocytes # 0.9 Eosinophils # 0.3 Basophils # 0.0 Nucleated Red Blood 0.0 Cells # Sodium Level 141 Potassium Level 3.2 L Chloride Level 106 Carbon Dioxide Level 27 Anion Gap 8 Blood Urea Nitrogen 25 H Creatinine 0.82 Est Glomerular Filtrat > 60 Rate mL/min Glucose Level 105 # Hemoglobin A1c 7.6 H Calcium Level 8.3 L Total Bilirubin 0.7 Direct Bilirubin 0.00 Indirect Bilirubin 0.7 Aspartate Amino 28 Transf (AST/SGOT) Alanine 21 Aminotransferase (ALT/SG PT) Alkaline Phosphatase 145 H Total Protein 6.8 # Albumin 3.3 Globulin 3.50 H Albumin/Globulin Ratio 0.94 Bedside Glucose 86 Medications Medication Current Medications Piperacillin Sod/ Tazobactam Sod 100 ml @ 200 mls/hr Q8 IVPB Last administered on 01/29/19at 06:54; Admin Dose 200 MLS/HR; Start 01/28/19 at 14:00 Ibuprofen (Motrin) 800 mg Q6H PRN PO PAIN; Start 01/28/19 at 13:00 IV Flush (NS 3 ml) 3 ml PER PROTOCOL IV ; Start 01/28/19 at 13:00 Enoxaparin Sodium (Lovenox) 30 mg DAILY SC ; Start 01/29/19 at 09:00 Insulin Glargine (Lantus) 11 units DAILY@2000 SC Last administered on 01/28/19at 20:31; Admin Dose 11 UNITS; Start 01/28/19 at 20:00 Insulin Aspart (Novolog Insulin Pen) NOVOLOG *MILD* ALGORITHM WITH MEALS BEDTIME SC ; Start 01/28/19 at 17:55 Miscellaneous Information 1 ea NOTE XX ; Start 01/28/19 at 15:00 Glucose (Glutose) 15 gm Q15M PRN PO DECREASED GLUCOSE; Start 01/28/19 at 15:00 Glucose (Glutose) 22.5 gm Q15M PRN PO DECREASED GLUCOSE; Start 01/28/19 at 15:00 Dextrose (D50w Syringe) 25 ml Q15M PRN IV DECREASED GLUCOSE; Start 01/28/19 at 15:00 Dextrose (D50w Syringe) 50 ml Q15M PRN IV DECREASED GLUCOSE; Start 01/28/19 at 15:00 Glucagon (Glucagen) 1 mg Q15M PRN IM DECREASED GLUCOSE; Start 01/28/19 at 15:00 Glucose (Glutose) 15 gm Q15M PRN BUCCAL DECREASED GLUCOSE; Start 01/28/19 at 15:00 Lactated Ringer's 1,000 ml @ 75 mls/hr [id number] IV Last administered on 01/29/19at 04:57; Admin Dose 75 MLS/HR; Start 01/28/19 at 16:00 Dimethicone (Blistex Lip [place]) 1 applic Q2H PRN TOP dry lips; Start 01/28/19 at 21:00 THUAN JOHN MD Jan 29, 2019 12:32
[2019-01-29] MEDS: INSULIN GLARGINE [LANTus] (100 UNITS/ML) SYG SC SCH (20:00)
[2019-01-29 20:19] VITALS: BP 152/74; PULSE 74; RESP 18
[2019-01-29] MEDS ORDERED: SEVOFLURANE 15 MIN ONE (22:00)
--- NOTE | 2019-01-29 22:01 | PREAC ---
Date/Time of Note Date/Time of Note DATE: 01/29/19 TIME: 21:58 Anesthesia Eval and Record Evaluation Time Pre-Procedure Interview DATE: 01/29/19 TIME: 21:58 Age 68 Sex female NPO: 8 hrs Preoperative diagnosis acute cholecystitis Planned procedure laparoscopic cholecystectomy Past Medical History Past Medical History: Includes Cardio: HTN, Dyslipidemia Endo: Diabetes Surgery & Anesthesia Issues No known issue Meds Anticoagulation: No Beta Valdo within 24 hr: No Reason Beta Valdo not given: Bradycarida, Hypotension Reported Medications Dapagliflozin/Metformin HCl (Xigduo Xr 5 mg-1,000 mg Tablet) 1 Each Tab.bp.24h, 2 EACH PO DAILY, TAB 01/28/19 Rosuvastatin Calcium* (Crestor*) 40 Mg Tablet, 40 MG PO QHS, #30 TAB 01/28/19 Doxazosin Mesylate* (Doxazosin Mesylate*) 8 Mg Tablet, 8 MG PO HS, TAB 01/28/19 Verapamil Hcl* (Isoptin*) 120 Mg Tab, 120 MG PO BID, TAB 01/28/19 Ibuprofen* (Ibuprofen*) 800 Mg Tab, 800 MG PO Q6H PRN for PAIN, TAB 01/28/19 Amlodipine Besylate* (Amlodipine Besylate*) 2.5 Mg Tablet, 2.5 MG PO DAILY, #30 TAB 01/28/19 Discontinued Reported Medications Verapamil Hcl* (Verapamil ER*) 120 Mg Tablet.er, 120 MG PO BID, TAB.SA 01/28/19 Doxazosin Mesylate* (Doxazosin Mesylate*) 8 Mg Tablet, 8 MG PO HS, TAB 09/09/17 Sitagliptin Phos/Metformin HCl (Janumet 50-1,000 mg Tablet) 1 Each Tablet, 1 EACH PO BID, TAB 09/09/17 Atorvastatin* (Atorvastatin*) 40 Mg Tablet, 40 MG PO DAILY, #30 TAB 09/09/17 Pioglitazone Hcl* (Pioglitazone Hcl*) 30 Mg Tablet, 30 MG PO DAILY, TAB 09/09/17 Losartan Potassium* (Losartan Potassium*) 100 Mg Tablet, 100 MG PO DAILY, TAB 09/09/17 Metoprolol Succinate* (Toprol XL*) 200 Mg Tab.sr.24h, 200 MG PO DAILY, #30 TAB 09/09/17 Ibuprofen* (Ibuprofen*) 800 Mg Tab, 800 MG PO Q8H PRN for PAIN, TAB 09/09/17 Verapamil Hcl* (Isoptin*) 120 Mg Tab, 120 MG PO BID, TAB 09/09/17 Discontinued Scripts Potassium Chloride* (K-Dur*) 20 Meq Tab.prt.sr, 20 MEQ PO DAILY for 5 Days, #5 TAB.SA Prov:KRISTAL POE MD 08/13/18 Ibuprofen* (Motrin*) 600 Mg Tab, 600 MG PO Q8 for PAIN AND/OR INFLAMMATION, #30 TAB Prov:NIKKI ROCHA MD 09/29/17 Meclizine Hcl* (Antivert*) 12.5 Mg Tab, 25 MG PO Q6H PRN for DIZZINESS, #20 TAB Prov:BELEN LIU MD 09/09/17 Current Medications Piperacillin Sod/ Tazobactam Sod 100 ml @ 200 mls/hr Q8 IVPB Last administered on 01/29/19at 21:33; Admin Dose 200 MLS/HR; Start 01/28/19 at 14:00 Ibuprofen (Motrin) 800 mg Q6H PRN PO PAIN; Start 01/28/19 at 13:00 IV Flush (NS 3 ml) 3 ml PER PROTOCOL IV ; Start 01/28/19 at 13:00 Enoxaparin Sodium (Lovenox) 30 mg DAILY SC ; Start 01/29/19 at 09:00 Insulin Glargine (Lantus) 11 units DAILY@2000 SC Last administered on 01/28/19at 20:31; Admin Dose 11 UNITS; Start 01/28/19 at 20:00 Insulin Aspart (Novolog Insulin Pen) NOVOLOG *MILD* ALGORITHM WITH MEALS BEDTIME SC ; Start 01/28/19 at 17:55 Miscellaneous Information 1 ea NOTE XX ; Start 01/28/19 at 15:00 Glucose (Glutose) 15 gm Q15M PRN PO DECREASED GLUCOSE; Start 01/28/19 at 15:00 Glucose (Glutose) 22.5 gm Q15M PRN PO DECREASED GLUCOSE; Start 01/28/19 at 15:00 Dextrose (D50w Syringe) 25 ml Q15M PRN IV DECREASED GLUCOSE; Start 01/28/19 at 15:00 Dextrose (D50w Syringe) 50 ml Q15M PRN IV DECREASED GLUCOSE; Start 01/28/19 at 15:00 Glucagon (Glucagen) 1 mg Q15M PRN IM DECREASED GLUCOSE; Start 01/28/19 at 15:00 Glucose (Glutose) 15 gm Q15M PRN BUCCAL DECREASED GLUCOSE; Start 01/28/19 at 15:00 Lactated Ringer's 1,000 ml @ 75 mls/hr [id number] IV Last administered on at 20:44; Admin Dose 75 MLS/HR; Start 01/28/19 at 16:00 Dimethicone (Blistex Lip [place]) 1 applic Q2H PRN TOP dry lips; Start 01/28/19 at 21:00 Meds reviewed: Yes Allergies Coded Allergies: No Known Drug Allergy (Verified Allergy, Mild, 01/28/19) Allergies Reviewed: Yes Labs/Studies Labs Reviewed: Reviewed by anesthesiologist Result Diagram: 01/29/19 0444 01/29/19 0444 Laboratory Tests 01/29/19 04:44 test: N/A Pre-procedure Exam Last vitals Vital Signs Date Temp Pulse Resp B/P (MAP) Pulse Ox O2 O2 Flow FiO2 Time Delivery Rate 01/29/19 98.6 74 18 152/74 96 20:19 (100) 01/28/19 Nasal 2.0 13:10 Cannula Airway: Adequate mouth opening, Adequate thyromental dist Mallampati: Mallampati II Teeth: Normal Lung: Normal Heart: Normal ASA Physical Status ASA physical status: 2 Emergency: None Planned Anesthetic General/MAC: ETT Nerve block: TAP (bilateral) Planned Pain Management Single shot nerve block, Parenteral pain med Pre-operative Attestations Prior to commencing anesthesia and surgery, the patient was re-evaluated, there was verification of: *The patient's identity *The results of appropriate recent lab work and preoperative vital signs *The above evaluation not changing prior to induction *Anesthetic plan, risk benefits, alternative and complications discussed with patient/family; questions answered; patient/family understands, accepts and wishes to proceed. Hand Carver used CLARK ANDINO MD Jan 29, 2019 22:01
[2019-01-29] MEDS ORDERED: SUCCINYLCHOLINE CHLORIDE 100 MG/5 ML SYG IV ONE (22:07)
[2019-01-29] MEDS ORDERED: ROPIVACAINE 0.5 % 30 ML VIAL ONE (22:07)
[2019-01-29] MEDS ORDERED: PROPOFOL 20 ML ONE (22:07)
[2019-01-29] MEDS ORDERED: ROCURONIUM 50 MG INJ ONE (22:07)
[2019-01-29] MEDS ORDERED: LIDOCAINE 2% (SDV) 5 ML INJ ONE (22:07)
[2019-01-29] MEDS ORDERED: BUPIVACAINE 0.25%/EPI (SDV) 30 ML INJ ONE (22:08)
[2019-01-29] MEDS ORDERED: LIDOCAINE 1% (MPF) 30 ML INJ ONE (22:08)
[2019-01-29] MEDS ORDERED: MIDAZOLAM 1 MG/ML 2 ML INJ ONE (22:31)
[2019-01-29] MEDS ORDERED: FAMOTIDINE 20 MG INJ ONE (23:07)
[2019-01-29] MEDS ORDERED: ONDANSETRON 4 MG INJ ONE (23:07)
[2019-01-29] MEDS ORDERED: FENTAnyl 50 MCG/ML VIAL ONE (23:11)
[2019-01-29] MEDS ORDERED: LABETALOL HCL 20MG INJ ONE (23:13)
[2019-01-30] VITALS (18 sets, daily range): BP systolic 118–181; BP diastolic 57–92; PULSE 67–78; RESP 15–25
[2019-01-30] MEDS ORDERED: GLYCOPYRROLATE 0.4 MG INJ ONE ×2 (00:50)
[2019-01-30] MEDS ORDERED: NEOSTIGMINE 3 MG/3 ML SYRINGE ONE ×2 (00:50)
[2019-01-30] MEDS ORDERED: hydrALAzine 20 MG INJ ONE (01:07)
--- NOTE | 2019-01-30 01:07 | OPR ---
Date/Time of Note Date/Time of Note DATE: 01/30/19 TIME: 00:58 Operative Report Procedure Date: Jan 30, 2019 Preoperative Diagnosis Acute cholecystitis and cholelithiasis Postoperative Diagnosis Same Operation/Procedure Performed Laparoscopic cholecystectomy Surgeon see signature line Flooring Machine Feeder None Anesthesia Type: general Anesthesiologist: CLARK ANDINO MD Estimated Blood Loss: 100 - 150 ml's Transfusion none Specimen Gallbladder and content Grafts/Implants none Tubes/Drains None Complications none Pt Condition Post Procedure: stable Disposition: PACU Indications Patient presented to the emergency room with severe epigastric right upper quadrant abdominal pain. She was noted to have a large gallstone impacted in the neck of the gallbladder with pericholecystic fluid gallbladder wall thickening. General surgery consultation was obtained I saw the patient she was tender in the right upper quadrant and felt that warranted laparoscopic cholecystectomy prior to discharge because of worsening symptoms and distention of the gallbladder. Details the procedure risk benefits alternatives were reviewed patient wished to proceed. Procedure Description Patient was brought to the operating room placed in the supine position general she is administered with intubation patient prepped draped standard sterile fashion a timeout was completed. A tap block was administered by anesthesia. An orogastric tube was inserted the Veress needle was used in the left upper quadrant Carnes's point insufflation delivered to maintain pneumoperitoneum 50 mils mercury throughout the procedure. A small stab incision made just above the umbilicus and a 5 mm trocar was inserted under direct visualization with a 30 degree 5 Suggs laparoscope the Veress needle was observed it was removed confirming that there was no injury or bleeding. An epigastric 5 mm trocar and 2 right-sided 5 Suggs trochars were inserted next the supraumbilical femoral trocar was exchanged for an 11 mm trocar. Patient was placed in reverse Trendelenburg and the right side up position. A Solo's arm retractor was placed in the right side of the operating table. The gallbladder was markedly thickened and distended and not able to be grasped because of this. A marija cystostomy was made with a hook cautery and a white bile consistent with hydrops of the gallbladder was noted and once the gallbladder was decompressed and the bile was able to be grasped and elevated up towards the diaphragm. There are multiple adhesions of a very distended neck of the gallbladder the large stone which was appreciated by ultrasound could be milked up into the body of the gallbladder but in order to better facilitate grasping the gallbladder and retracting a cholecyst ostomy was made with hook cautery large enough to deliver a very large gallstone which measured approximately 4 x 2-1/2 cm. The gallbladder was then elevated by Tse's pouch with a combination of blunt dissection with suction irrigation and hook cautery the critical view was maintained the gallbladder was elevated the cystic duct was identified first skeletonized and double clipped on the patient's I was the gallbladder side and divided and retracting cephalad the cystic artery and lymph node of [place] were noted the artery was double clipped proximally 1 distally and then divided small bleeder branch from my up in the right hepatic artery which was controlled with a single Hemoclip. Monitoring this showed good hemostasis. The gallbladder was then quite edematous was able to be peeled off the liver capsule and completion with hook cautery. There was some oozing along the liver capsule. A specimen bag was inserted through the 11 mm port the gallbladder and the large stone were placed and this was brought through the wound which had to be enlarged and slightly to accommodate delivery. The trocar was then reinserted pneumatic seal was maintained with a sharp penetrating towel clamp. The bleeding from the dissection was aspirated was not well with a clot for a total blood loss of approximately 100 cc. 5 cc of FloSeal were then instilled in the liver bed hemostasis seemed to be well preserved there was no ongoing leak and a drain was not placed. The patient was then placed in flat position the pneumoperitoneum was allowed to escape the trochars removed the fascia incision was closed with interrupted 0 Vicryl suture and the skin incision closed with 4-0 Monocryl and Dermabond for dressing. Patient was extubated in the operative brought to the recovery room in stable condition. Sponge needle count correct x2. MONE HSU MD Jan 30, 2019 01:07
--- NOTE | 2019-01-30 01:16 | PAC ---
Date/Time of Note Date/Time of Note DATE: 01/30/19 TIME: 01:13 Post-Anesthesia Notes Post-Anesthesia Note Last documented vital signs Vital Signs Date Temp Pulse Resp B/P (MAP) Pulse Ox O2 O2 Flow FiO2 Time Delivery Rate 01/29/19 98.6 74 18 152/74 96 20:19 (100) 01/28/19 Nasal 2.0 13:10 Cannula Activity: WNL Respiratory function: WNL Cardiovascular function: WNL Mental status: Baseline Pain reasonably controlled: Yes Hydration appropriate: Yes Nausea/Vomiting absent: Yes Comments BP: 141/85 HR: 78 RR: 15 T: 98 SaO2: 98% CLARK ANDINO MD Jan 30, 2019 01:16
[2019-01-30] MEDS ORDERED: HYDROmorphONE 1 MG/5 ML IV SYRINGE IV PRN ×2 (01:30)
[2019-01-30] MEDS ORDERED: DIPHENHYDRAMINE 50 MG INJ IV PRN (01:30)
[2019-01-30] MEDS ORDERED: hydrALAzine 20 MG INJ IV PRN (01:30)
[2019-01-30] MEDS ORDERED: FENTAnyl 50 MCG/ML VIAL IV PRN (01:30)
[2019-01-30] MEDS ORDERED: PROCHLORPERAZINE 10 MG INJ IV PRN (01:30)
[2019-01-30] MEDS ORDERED: MEPERIDINE 25 MG INJ IV PRN (01:30)
[2019-01-30] MEDS ORDERED: LABETALOL HCL 20MG INJ IV PRN (01:30)
[2019-01-30] MEDS ORDERED: ACETAMINOPHEN 325 MG TAB PO PRN (01:30)
[2019-01-30] MEDS ORDERED: ONDANSETRON 4 MG INJ IV PRN (01:30)
[2019-01-30] MEDS: D5W-0.45 NACL + KCL 20 MEQ 1,000 ML IV SCH ×2 (02:34→10:42)
[2019-01-30] MEDS ORDERED: HYDROCODONE/APAP (5/325) TAB PO PRN (03:07)
[2019-01-30] MEDS: PIPER-TAZO 3.375 GM IV (PMX) 100 ML IVPB SCH ×3 (06:05→17:45)
--- NOTE | 2019-01-30 07:19 | PN ---
Date/Time of Note Date/Time of Note DATE: 01/30/19 TIME: 07:17 Assessment/Plan VTE Prophylaxis Risk score (from Nsg)>0 risk: 2 SCD applied (from Nsg): Yes Pharmacological prophylaxis: LMWH Lines/Catheters IV Catheter Type (from Nrsg): Peripheral IV Urinary Cath still in place: No Assessment/Plan Hospital Course SUBJECTIVE: Tolerating regular consistency diet. OBJECTIVE: Physical Exam General: Obese, 68 year-old female lying in bed in no apparent distress. HEENT: Normocephalic, atraumatic. Eyes: Anicteric sclerae, conjunctivae clear. ENT: Nasal septum midline, oral mucosa moist. Neck supple, no JVD noticed. Respiratory: Bilaterally clear breath sounds. No use of accessory muscles of respiration. No adventitious breath sounds. Cardiovascular: S1, S2 heard. Regular rate and rhythm. Abdomen: Soft, nontender, and nondistended. Laparoscopic incision sites look clean and dry. Genitourinary: Deferred. Extremities: No cyanosis, no clubbing, no edema. Peripheral pulses palpable. Neurologic: Cranial nerves II through XII grossly intact. The patient is awake, alert, and oriented. Skin: Normal skin turgor. No skin rashes. Labs & Vitals per chart ASSESSMENT & PLAN 68-year-old female with comorbidities including diabetes mellitus, HTN, dyslipidemia, and obesity who came to the emergency room with chief complaint of abdominal pain with associated nausea and vomiting with abdominal imaging showing a large impacted stone in the neck of the gallbladder with associated gallbladder wall thickening and pericholecystic fluid, who was admitted to inpatient setting for further treatment and evaluation. 1. Acute cholecystitis. Status post laparoscopic cholecystectomy on 01/30/2019. Advance diet as tolerated. Encourage frequent ambulation and use of incentive spirometry. 2. Diabetes mellitus type 2. Hemoglobin A1c 7.6. Continue sliding scale insulin along with basal insulin. 3. Hypertension. Resume antihypertensives. 4. Dyslipidemia. Resume statins. 5. Obesity. BMI more than 30 kg/m. Will advise weight reduction. 6. DVT prophylaxis. Subcutaneous Lovenox. 7. Plan. Continue pain control. Continue incentive spirometry and encourage frequent ambulation. Await surgical clearance before discharge the patient home. The patient was seen in collaboration with Dr. Bangura. Result Diagram: 01/29/19 0444 01/29/194 Results 24hrs Laboratory Tests Test 01/29/19 08:19 01/29/19 12:39 01/29/19 18:05 01/29/19 20:29 Bedside Glucose 86 91 70 72 Test 01/29/19 22:19 01/30/19 01:08 Bedside Glucose 70 140 Exam/Review of Systems Exam Vitals Vital Signs Date Temp Pulse Resp B/P (MAP) Pulse Ox O2 O2 Flow FiO2 Time Delivery Rate 01/30/19 74 22 119/57 97 Nasal 01:57 (77) Cannula 01/30/19 2.0 01:10 01/30/19 98.0 01:02 Intake and Output 01/29/19 01/29/19 01/30/19 1515:00 23:00 07:00 IntakeIntake Total 850 ml 450 ml 603 ml OutputOutput Total 300 ml BalanceBalance 850 ml 450 ml 303 ml Results Results 24hrs Laboratory Tests Test 01/29/19 08:19 01/29/19 12:39 01/29/19 18:05 01/29/19 20:29 Bedside Glucose 86 91 70 72 Test 01/29/19 22:19 01/30/19 01:08 Bedside Glucose 70 140 Medications Medication Current Medications Ibuprofen (Motrin) 800 mg Q6H PRN PO PAIN; Start 01/28/19 at 13:00 IV Flush (NS 3 ml) 3 ml PER PROTOCOL IV ; Start 01/28/19 at 13:00 Enoxaparin Sodium (Lovenox) 30 mg DAILY SC ; Start 01/29/19 at 09:00 Insulin Glargine (Lantus) 11 units DAILY@2000 SC Last administered on 01/28/19at 20:31; Admin Dose 11 UNITS; Start 01/28/19 at 20:00 Insulin Aspart (Novolog Insulin Pen) NOVOLOG *MILD* ALGORITHM WITH MEALS BEDTIME SC ; Start 01/28/19 at 17:55 Miscellaneous Information 1 ea NOTE XX ; Start 01/28/19 at 15:00 Glucose (Glutose) 15 gm Q15M PRN PO DECREASED GLUCOSE; Start 01/28/19 at 15:00 Glucose (Glutose) 22.5 gm Q15M PRN PO DECREASED GLUCOSE; Start 01/28/19 at 15:00 Dextrose (D50w Syringe) 25 ml Q15M PRN IV DECREASED GLUCOSE Last administered on 01/29/19at 22:24; Admin Dose 25 ML; Start 01/28/19 at 15:00 Dextrose (D50w Syringe) 50 ml Q15M PRN IV DECREASED GLUCOSE; Start 01/28/19 at 15:00 Glucagon (Glucagen) 1 mg Q15M PRN IM DECREASED GLUCOSE; Start 01/28/19 at 15:00 Glucose (Glutose) 15 gm Q15M PRN BUCCAL DECREASED GLUCOSE; Start 01/28/19 at 15:00 Lactated Ringer's 1,000 ml @ 75 mls/hr [id number] IV Last administered on 01/29/19at 20:44; Admin Dose 75 MLS/HR; Start 01/28/19 at 16:00 Dimethicone (Blistex Lip [place]) 1 applic Q2H PRN TOP dry lips; Start 01/28/19 at 21:00 Piperacillin Sod/ Tazobactam Sod 100 ml @ 200 mls/hr Q6 IVPB Last administered on 01/30/19at 06:05; Admin Dose 200 MLS/HR; Start 01/30/19 at 06:00 Acetaminophen (Tylenol Tab) 650 mg Q6H PRN PO MILD PAIN(1-3)OR ELEVATED TEMP; Start 01/30/19 at 01:30 Potassium Chloride/Dextrose/ Sod Cl 1,000 ml @ 100 mls/hr Q10H IV Last administered on 01/30/19at 02:34; Admin Dose 100 MLS/HR; Start 01/30/19 at 01:07 Acetaminophen/ Hydrocodone Bitart ([place] (5/325)) 1 tab Q8H PRN PO MODERATE PAIN LEVEL 4-6 Last administered on 01/30/19at 06:24; Admin Dose 1 TAB; Start 01/30/19 at 03:07 SHAKA BANKS NP Jan 30, 2019 07:19
[2019-01-30] MEDS: LACTATED RINGER'S 1,000 ML IV SCH ×2 (08:00→22:17)
[2019-01-30] MEDS: AMLODIPINE 2.5 MG TAB PO SCH (08:34)
[2019-01-30] MEDS: VERAPAMIL 120 MG TAB PO SCH ×2 (08:34→21:26)
[2019-01-30] MEDS: ENOXAPARIN 30 MG/0.3 ML SYG SC SCH (08:36)
[2019-01-30] MEDS: INSULIN ASPART [NOVOLOG] 3 ML PEN SC SCH ×4 (08:37→21:00)
[2019-01-30] MEDS ORDERED: SUCCINYLCHOLINE CHLORIDE 100 MG/5 ML SYG IV ONE (11:09)
[2019-01-30] MEDS ORDERED: LABETALOL HCL 20MG INJ IV ONE (11:09)
[2019-01-30] MEDS ORDERED: INSULIN GLARGINE [LANTus] (100 UNITS/ML) SYG SC SCH (20:00)
[2019-01-30] MEDS ORDERED: ATORVASTATIN 80 MG TAB PO SCH (21:00)
[2019-01-30] MEDS ORDERED: DOXAZOSIN 4 MG TAB PO SCH (21:00)
[2019-01-31] MEDS: PIPER-TAZO 3.375 GM IV (PMX) 100 ML IVPB SCH ×2 (00:11→06:48)
[2019-01-31 02:35] VITALS: BP 129/61; PULSE 75; RESP 20
[2019-01-31] MEDS ORDERED: INSULIN ASPART [NOVOLOG] 3 ML PEN SC SCH (07:50)
[2019-01-31] MEDS: INSULIN ASPART [NOVOLOG] 3 ML PEN SC SCH (07:50)
[2019-01-31] MEDS ORDERED: POTASSIUM CHLORIDE (SR) 20 MEQ TAB PO STA (08:06)
--- NOTE | 2019-01-31 08:11 | PDOCDIS ---
Discharge Instructions CONDITION [id number] Patient Condition: [id number] Stable HOME CARE INSTRUCTIONS: [id number] Diet Instructions: [id number] Low Fat /Cholesterol [id number] Special Diet: [id number] Low carbohydrate ACTIVITY: [id number] Activity Restrictions: [id number] Slowly Increase Activity Rest between Activity Avoid heavy lifting Avoid Heavy Housework [id number] Bathing Restrictions: [id number] Tub Bath FOLLOW UP/APPOINTMENTS Follow-up Plan Hamzah Andre MD Specialty: General Surgery Office Address [address] [place] [address]. [address] [place] [address] Office OTHER ORDERS: Other Orders: 1. Take a low cholesterol, low carbohydrate, diet as tolerated. 2. Keep incisions clean and dry. May shower. Avoid tub baths and swimming for 2 weeks. Use mild soap and pat dry the incisions. 3. Take medications as needed for pain. 4. Call the surgeon or go to the nearest ER if you have severe abdominal pain despite pain medications. 5. Call the surgeon or go to the nearest ER if you notice any bleeding or secretions coming out of the incision sites. Also call the surgeon if you notice any blood in stool, if you have persistent fevers, or any other unusual signs or symptoms. 6. Follow-up with the surgeon Dr. Andre in 7 days for incision check. 7. Avoid heavy lifting [more than 10-15 pounds] for 4 weeks. SHAKA BANKS NP Jan 31, 2019 08:11
[2019-01-31] MEDS ORDERED: HYDR-4011 PO (08:12)
[2019-01-31 08:25] VITALS: BP 138/62; PULSE 73; RESP 20
--- NOTE | 2019-01-31 08:40 | DS ---
Date/Time of Note Date/Time of Note DATE: 01/31/19 TIME: 08:38 Discharge Summary Admission/Discharge Info Admit Date/Time Jan 28, 2019 at 11:54 Discharge Date/Time Discharge Diagnosis 1. Acute cholecystitis. Status post laparoscopic cholecystectomy on 01/30/2019. 2. Diabetes mellitus type 2. Hemoglobin A1c 7.6. 3. Hypertension. 4. Dyslipidemia. 5. Obesity. BMI more than 30 kg/m. Patient Condition: Stable Consults 1. Hamzah Andre MD, General Surgery. Procedures Operative Report Procedure Date: Jan 30, 2019 Preoperative Diagnosis Acute cholecystitis and cholelithiasis Postoperative Diagnosis Same Operation/Procedure Performed Laparoscopic cholecystectomy Hx of Present Illness This is a 68-year-old female with comorbidities including diabetes mellitus, HTN, dyslipidemia, and obesity who came to the emergency room with chief complaint of abdominal pain with associated nausea and vomiting with abdominal imaging showing a large impacted stone in the neck of the gallbladder with associated gallbladder wall thickening and pericholecystic fluid, who was admitted to inpatient setting for further treatment and evaluation. Hospital Course The patient was kept n.p.o. She was started on empiric antimicrobials including coverage for anaerobes. She was provided with adequate pain control. General surgery consult was obtained. The patient was taken to the OR on 01/30/2019 the patient underwent a laparoscopic cholecystectomy. Status post cholecystectomy, she was started on a clear liquid diet and the diet was advanced as tolerated to regular consistency diet without any significant gastrointestinal symptoms. She was encouraged on frequent ambulation and frequent use of incentive spirometry postoperatively. The patient had trending up WBC after the surgery, which became normalized on the day of discharge. The patient remained afebrile throughout the hospital course. The patient's chronic problems include diabetes mellitus type 2. The patient's hemoglobin A1c was found to be 7.6. She was maintained on sliding scale insulin along with a basal insulin and pre-meal insulin. She has underlying hypertension. She was maintained on antihypertensives for the same. She has underlying dyslipidemia. The patient was resumed on statins status post surgery. The patient's fasting lipid panel was satisfactory. The patient is also obese with a BMI of more than 30 kg/m. The patient was advised on weight reduction. The patient had a stable hospital course. The patient is stable to be discharged home. Discharge Instructions 1. Take a low cholesterol, low carbohydrate, diet as tolerated. 2. Keep incisions clean and dry. May shower. Avoid tub baths and swimming for 2 weeks. Use mild soap and pat dry the incisions. 3. Take medications as needed for pain. 4. Call the surgeon or go to the nearest ER if you have severe abdominal pain despite pain medications. 5. Call the surgeon or go to the nearest ER if you notice any bleeding or secretions coming out of the incision sites. Also call the surgeon if you notice any blood in stool, if you have persistent fevers, or any other unusual signs or symptoms. 6. Follow-up with the surgeon Dr. Andre in 7 days for incision check. 7. Avoid heavy lifting [more than 10-15 pounds] for 4 weeks. The patient verbalized understanding of her discharge instructions. At this time I would like to thank Dr. Andre for seeing the patient, doing the necessary procedures, and providing clinical recommendations. The patient was seen in collaboration with Dr. Bangura. Home Meds Active Scripts Hydrocodone/Acetaminophen ([place] 5-325 Tablet) 1 Each Tablet, 1 EACH PO Q6H, #10 TAB Prov:SHAKA BANKS [employer] 01/31/19 Reported Medications Dapagliflozin/Metformin HCl (Xigduo Xr 5 mg-1,000 mg Tablet) 1 Each Tab.bp.24h, 2 EACH PO DAILY, TAB 01/28/19 Rosuvastatin Calcium* (Crestor*) 40 Mg Tablet, 40 MG PO QHS, #30 TAB 01/28/19 Doxazosin Mesylate* (Doxazosin Mesylate*) 8 Mg Tablet, 8 MG PO HS, TAB 01/28/19 Verapamil Hcl* (Isoptin*) 120 Mg Tab, 120 MG PO BID, TAB 01/28/19 Amlodipine Besylate* (Amlodipine Besylate*) 2.5 Mg Tablet, 2.5 MG PO DAILY, #30 TAB 01/28/19 Discontinued Reported Medications Ibuprofen* (Ibuprofen*) 800 Mg Tab, 800 MG PO Q6H PRN for PAIN, TAB 01/28/19 Verapamil Hcl* (Verapamil ER*) 120 Mg Tablet.er, 120 MG PO BID, TAB.SA 01/28/19 Doxazosin Mesylate* (Doxazosin Mesylate*) 8 Mg Tablet, 8 MG PO HS, TAB 09/09/17 Sitagliptin Phos/Metformin HCl (Janumet 50-1,000 mg Tablet) 1 Each Tablet, 1 EACH PO BID, TAB 09/09/17 Atorvastatin* (Atorvastatin*) 40 Mg Tablet, 40 MG PO DAILY, #30 TAB 09/09/17 Pioglitazone Hcl* (Pioglitazone Hcl*) 30 Mg Tablet, 30 MG PO DAILY, TAB 09/09/17 Losartan Potassium* (Losartan Potassium*) 100 Mg Tablet, 100 MG PO DAILY, TAB 09/09/17 Metoprolol Succinate* (Toprol XL*) 200 Mg Tab.sr.24h, 200 MG PO DAILY, #30 TAB 09/09/17 Ibuprofen* (Ibuprofen*) 800 Mg Tab, 800 MG PO Q8H PRN for PAIN, TAB 09/09/17 Verapamil Hcl* (Isoptin*) 120 Mg Tab, 120 MG PO BID, TAB 09/09/17 Discontinued Scripts Potassium Chloride* (K-Dur*) 20 Meq Tab.prt.sr, 20 MEQ PO DAILY for 5 Days, #5 TAB.SA Prov:KRISTAL POE MD 08/13/18 Ibuprofen* (Motrin*) 600 Mg Tab, 600 MG PO Q8 for PAIN AND/OR INFLAMMATION, #30 TAB Prov:NIKKI ROCHA MD 09/29/17 Meclizine Hcl* (Antivert*) 12.5 Mg Tab, 25 MG PO Q6H PRN for DIZZINESS, #20 TAB Prov:BELEN LIU MD 09/09/17 Follow-up Plan Hamzah Andre MD Specialty: General Surgery Office Address [address] [place] [address]. [address] [place] [address] Office Primary Care Provider Not On Staff Doctor Time spent on discharge: > 30 minutes Pending Labs Laboratory Tests Test 01/30/19 12:27 01/30/19 17:42 01/30/19 21:22 01/31/19 04:34 Bedside 242 460 159 Glucose mg/dL (70-220) mg/dL (70-220) mg/dL (70-220) White Blood 9.0 Count 10^3/ul (4.8-1 0.8) Red Blood 3.01 Count 10^6/ul (4.20- 5.40) Hemoglobin 9.1 g/dl (12.0-16. 0) Hematocrit 28.6 % (37.0-47.0) Mean 95.0 Corpuscular fl (82.0-101.0 Volume ) Mean 30.2 Corpuscular pg (29.0-33.0) Hemoglobin Mean 31.8 Corpuscular g/dl (32.0-37. Hemoglobin Conc 0) ent Red Cell 13.4 Distribution % (11.5-14.5) Width Platelet Count 271 10^3/UL (140-4 15) Mean Platelet 10.1 Volume fl (7.4-10.4) Immature 0.300 Granulocytes % % (0.001-0.429 ) Neutrophils % 68.0 % (39.0-77.0) Lymphocytes % 21.9 % (15.0-51.0) Monocytes % 7.4 % (0.0-11.0) Eosinophils % 2.1 % (0.0-7.0) Basophils % 0.3 % (0.0-2.0) Nucleated Red 0.0 Blood Cells % /100WBC (0.0-0 .0) Immature 0.030 Granulocytes # 10^3/ul (0.0-0 .031) Neutrophils # 6.1 10^3/ul (1.6-7 .5) Lymphocytes # 2.0 10^3/ul (0.8-2 .9) Monocytes # 0.7 10^3/ul (0.3-0 .9) Eosinophils # 0.2 10^3/ul (0.0-0 .5) Basophils # 0.0 10^3/ul (0.0-0 .1) Nucleated Red 0.0 Blood Cells # 10^3/ul (0.0-0 .0) Sodium Level 143 mmol/L (135-14 4) Potassium 3.0 Level mmol/L (3.5-5. 1) Chloride Level 111 mmol/L (97-110 ) Carbon Dioxide 25 Level mmol/L (21-31) Anion Gap 7 (5-13) Blood Urea 13 Nitrogen mg/dl (7-20) Creatinine 0.80 mg/dl (0.44-1. 00) Est Glomerular > 60 Filtrat mL/min (>60) Rate mL/min Glucose Level 121 mg/dl (70-220) Calcium Level 7.8 mg/dl (8.4-10. 2) Phosphorus 3.6 Level mg/dl (2.5-4.9 ) Magnesium 1.9 Level mg/dl (1.7-2.5 ) Total 0.4 Bilirubin mg/dl (0.2-1.3 ) Direct 0.00 Bilirubin mg/dl (0.00-0. 20) Indirect 0.4 Bilirubin mg/dl (0-1.1) Aspartate Amino 24 Transf (AST/SGO IU/L (15-46) T) Alanine 27 Aminotransferas IU/L (13-69) e (ALT/SGPT) Alkaline 122 Phosphatase IU/L (42-121) Total Protein 6.1 g/dl (6.1-8.1) Albumin 2.8 g/dl (3.3-4.9) Globulin 3.30 g/dl (1.3-3.2) Albumin/Globuli 0.84 n Ratio Triglycerides 119 Level mg/dl (0-149) Cholesterol 119 Level mg/dl (100-200 ) LDL 57 mg/dl Cholesterol, Calculated HDL 38 Cholesterol mg/dl (33-92) Cholesterol/HDL 3.1 RATIO Ratio SHAKA BANKS NP Jan 31, 2019 08:40
[2019-01-31] MEDS: VERAPAMIL 120 MG TAB PO SCH (08:47)
[2019-01-31] MEDS: AMLODIPINE 2.5 MG TAB PO SCH (08:47)
[2019-01-31] MEDS: ENOXAPARIN 30 MG/0.3 ML SYG SC SCH (08:49)
[2019-01-31] MEDS: LACTATED RINGER'S 1,000 ML IV SCH (10:40)
== END 2019-01-31 11:10 | disposition home or self-care (01) | DRG 419 ==
LOC: E/R 09:23 → MS1 11:54 → SUATTDRO 12:39
PROVIDERS: ADMIT Internal Medicine; ATTEND Internal Medicine
PROC: 0FT44ZZ Resection of Gallbladder, Percutaneous Endoscopic Approach (ICD-10-PCS; principal; 2019-01-30)
DX: K80.00 Calculus of gallbladder with acute cholecystitis without obstruction (principal); E11.8 Type 2 diabetes mellitus with unspecified complications; E66.9 Obesity, unspecified; Z68.30 Body mass index [BMI] 30.0-30.9, adult; E78.5 Hyperlipidemia, unspecified; I10 Essential (primary) hypertension; Z79.84 Long term (current) use of oral hypoglycemic drugs; E78.00 Pure hypercholesterolemia, unspecified; Z87.891 Personal history of nicotine dependence
CPT/HCPCS: 36415; 71045; 74176; 76705; 80053; 80061; 81001; 82962; 83036; 83605; 83690; 83735; 84100; 84484; 85025; 85610; 85730; 88304; 93005; 96374; 96375; J0295; J0360; J1650; J1815; J2250; J2270; J2405; J2543; J2710; J2795; J3010; J3480; J7120